=== PATIENT | male | born 1945 | race Native Hawaiian/Other Pacific Islander ===

== ENCOUNTER 2016-12-07 06:11 | Emergency (ER) | payer OTHER ==
[2016-12-07] MEDS ORDERED: Sodium Chloride 0.9% 1,000 ML IV ONE (06:35)
--- NOTE | 2016-12-07 06:38 | C.PDOC ---
History Of Present Illness A 71 y/o male c/o sudden onset vertigo that began this morning. Pt notes that the symptoms is worse with worse with movement. Pt also c/o mild slight chest pain and nausea. Pt denies vomiting, fever, chills, LOC, or any other complaints. Time Seen by Provider: 12/07/16 06:43 Chief Complaint (Nursing): Chest Pain History Per: Patient History/Exam Limitations: no limitations Onset/Duration Of Symptoms: Hrs Current Symptoms Are (Timing): Still Present Severity: Mild Associated Symptoms: Nausea Exacerbating Factors: Movement Recent travel outside of the [place]: No Additional History Per: Patient Past Medical History Reviewed: Historical Data, Nursing Documentation, Vital Signs Vital Signs: Last Vital Signs Temp 97.5 F L 12/07/16 08:00 Pulse 84 12/07/16 08:00 Resp 20 12/07/16 08:00 BP 125/65 12/07/16 08:00 Pulse Ox 97 12/07/16 12:00 - Medical History PMH: HTN Family History: States: Unknown Family Hx - Social History Hx Alcohol Use: Yes Hx Substance Use: No - Immunization History Hx Tetanus Toxoid Vaccination: No Hx Influenza Vaccination: Yes Hx Pneumococcal Vaccination: No Review Of Systems Except As Marked, All Systems Reviewed And Found Negative. Constitutional: Negative for: Fever, Chills Cardiovascular: Positive for: Chest Pain (Mild chest pain) Gastrointestinal: Positive for: Nausea. Negative for: Vomiting Neurological: Positive for: Other (Vertigo. No LOC) Physical Exam - Physical Exam Appears: Non-toxic, No Acute Distress Skin: Warm, Dry Head: Atraumatic, Normacephalic Eye(s): bilateral: Other (Bilateral nystagmus) Oral Mucosa: Moist Throat: Normal, No Exudate Neck: Supple Chest: Symmetrical, No Tenderness Cardiovascular: Rhythm Regular, No Murmur Respiratory: Normal Breath Sounds, No Accessory Muscle Use, No Rales, No Rhonchi , No Wheezing Gastrointestinal/Abdominal: Soft, No Tenderness Neurological/Psych: Oriented x3, Normal Speech, Other (No focal deficit) ED Course And Treatment - Laboratory Results Result Diagrams: 12/07/16 06:43 12/07/16 06:43 O2 Sat by Pulse Oximetry: 97 Medical Decision Making Medical Decision Making: Impression: 71 y/o male c/o sudden onset of vertigo that occurred 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 Your provider was Rowdy. You were treated for positional vertigo. The emergency medical care you received today was directed at your acute symptoms. If you were prescribed any medication , please fill it and take as directed. It may take several days for your symptoms to resolve. Return to the Emergency Department if your symptoms worsen , do not improve, or if you have any other problems. Please contact your doctor or call one of the physicians/clinics you have been referred to that are listed on the Patient Visit Information form that is included in your discharge packet. Bring any paperwork you were given at discharge with you along with any medications you are taking to your follow up visit. Our treatment cannot replace ongoing medical care by a primary care provider (PCP) outside of the emergency department. Thank you for allowing the [facility] team to be part of your care today. Follow up with your primary doctor tomorrow as scheduled. Stay hydrated throughout the day. Prescriptions: Meclizine [Meclizine*] 25 mg PO Q6 PRN #20 tab PRN Reason: Dizziness Instructions: Benign Paroxysmal Positional Vertigo (ED) Forms: Work Excuse - POA Present On Arrival: None - Clinical Impression Clinical Impression: Vertigo - Scribe Statement The provider has reviewed the documentation as recorded by the Tevinibcassi kim All medical record entries made by the Tevinibcassi were at my direction and personally dictated by me. I have reviewed the chart and agree that the record accurately reflects my personal performance of the history, physical exam, medical decision making, and the department course for this patient. I have also personally directed, reviewed, and agree with the discharge instructions and disposition. Physician Patient Turnover Patient Signed Over To: Ronak Go DO
[2016-12-07] MEDS ORDERED: Sodium Chloride 0.9% 1,000 ML ONE (06:41)
[2016-12-07 06:45] LABS: BASO # 0.1 K/uL (0.0-0.2); BASO % 1.1 % (0.0-2.0); EOS # 0.2 K/uL (0.0-0.7); EOS % 3.4 % (0.0-4.0); HEMATOCRIT 43.3 % (35.0-51.0); LYMPH # 1.3 K/uL (1.0-4.3); LYMPH % 23.5 % (20.0-40.0); MEAN CELL VOLUME 96.8 fL (80.0-94.0); MEAN CORPUSCULAR HEMOGLOBIN 33.8 pg (27.0-31.0); MEAN CORPUSCULAR HGB CONC 34.9 g/dL (33.0-37.0); MEAN PLATELET VOLUME 7.7 fL (7.2-11.7); MONO # 0.6 K/uL (0.0-0.8); MONO % 10.7 % (0.0-10.0); RED CELL DISTRIBUTION WIDTH 12.7 % (11.5-14.5); WHITE BLOOD COUNT 5.7 K/uL (4.8-10.8)
[2016-12-07 06:54] LABS: CHLORIDE 96 mmol/L (98-107)
[2016-12-07 06:55] LABS: POTASSIUM 3.8 mmol/L (3.6-5.2); SODIUM 135 mmol/L (132-148)
[2016-12-07 06:57] LABS: AST/SGOT 35 U/L (17-59); BILIRUBIN,TOTAL 1.1 mg/dL (0.2-1.3); CARBON DIOXIDE 30 mmol/L (22-30); GFR AFRICAN-AMERICAN > 60
[2016-12-07 06:58] LABS: ALB/GLOB RATIO 1.3 (1.0-2.1); ALKALINE PHOSPHATASE 53 U/L (38-126); ALT/SGPT 32 U/L (21-72); BLOOD UREA NITROGEN 20 mg/dL (9-20); CALCIUM 9.6 mg/dl (8.6-10.4); GLUCOSE,RANDOM 123 mg/dL (75-110)
[2016-12-07 07:14] VITALS: RESP 20
[2016-12-07 08:01] VITALS: BP 125/65; PULSE 84; TEMP 97.5
--- NOTE | 2016-12-07 08:29 | CT ---
PROCEDURE: CT HEAD WITHOUT CONTRAST. HISTORY: Headache COMPARISON: None available. TECHNIQUE: Axial computed tomography images were obtained through the head/brain without intravenous contrast. Radiation dose: Total exam DLP = 929.46 mGy-cm. This CT exam was performed using one or more of the following dose reduction techniques: Automated exposure control, adjustment of the mA and/or kV according to patient size, and/or use of iterative reconstruction technique. FINDINGS: HEMORRHAGE: No intracranial hemorrhage. BRAIN: There is no territorial infarction, mass, mass effect or abnormal extra-axial fluid collection. VENTRICLES: There is mild age-related global parenchymal volume loss and proportionate enlargement of the ventricles and cortical sulci. CALVARIUM: Unremarkable. PARANASAL SINUSES: Mild scattered chronic ethmoid sinusitis. The remaining included paranasal sinuses are predominantly clear. MASTOID AIR CELLS: Unremarkable as visualized. No inflammatory changes. OTHER FINDINGS: None. IMPRESSION: No acute intracranial abnormality. Mild age-related global parenchymal volume loss. A preliminary report was provided by [email or web address].
--- NOTE | 2016-12-07 09:00 | RAD ---
HISTORY: Chest pain COMPARISON: No prior. FINDINGS: LUNGS: The lungs are well inflated and clear. PLEURA: No significant pleural effusion identified, no pneumothorax apparent. CARDIOVASCULAR: Normal. OSSEOUS STRUCTURES: No significant abnormalities. VISUALIZED UPPER ABDOMEN: Normal. OTHER FINDINGS: None. IMPRESSION: No active pulmonary disease.
[2016-12-07 12:00] VITALS: O2SAT 97
--- NOTE | 2016-12-08 14:05 | CARD ---
APPROVED REPORT EKG Measurement Heart [id number] <Conclusion> Normal sinus rhythm Normal ECG
== END 2016-12-07 08:07 | disposition home or self-care (01) ==
LOC: C.ER 06:11
DX: R42 Dizziness and giddiness (principal)
CPT/HCPCS: 70450; 71010; 80053; 84484; 85025; 93005; 96374; 99285; J2060; J7040

== ENCOUNTER 2017-12-14 09:38 | Inpatient (IN) | payer MEDICARE, OTHER ==
--- NOTE | 2017-12-14 10:18 | C.PDOC ---
History Of Present Illness 72-year-old male with PMHx of HTN and Vertigo, presents to the emergency department with 2 day history of dizziness. Patient states he has been experiencing chest pain that is associated with nausea, non-bloody/non-bilious vomiting and room-spinning dizziness that started this morning. He notes chest pain has gone, and states he took Meclizine this morning with minimal relief. Denies fever, shortness of breath, back pain, numbness, weakness, vision changes , or any other associated symptoms. Time Seen by Provider: 12/14/17 10:01 Chief Complaint (Nursing): Chest Pain History Per: Patient History/Exam Limitations: no limitations Onset/Duration Of Symptoms: Days Current Symptoms Are (Timing): Still Present Past Medical History Reviewed: Historical Data, Nursing Documentation, Vital Signs Vital Signs: Last Vital Signs Temp 97.8 F 12/14/17 09:45 Pulse 78 12/14/17 12:30 Resp 18 12/14/17 12:30 BP 137/81 12/14/17 12:30 Pulse Ox 97 12/14/17 15:00 - Medical History PMH: HTN, Hypercholesterolemia Other PMH: Vertigo Family History: States: No Known Family Hx - Social History Hx Alcohol Use: Yes Hx Substance Use: No - Immunization History Hx Tetanus Toxoid Vaccination: Yes Hx Influenza Vaccination: Yes Hx Pneumococcal Vaccination: No Review Of Systems Except As Marked, All Systems Reviewed And Found Negative. Constitutional: Negative for: Fever, Chills ENT: Negative for: Ear Pain Cardiovascular: Positive for: Chest Pain. Negative for: Palpitations, Orthopnea , Edema, Light Headedness Respiratory: Negative for: Cough, Shortness of Breath Gastrointestinal: Positive for: Nausea, Vomiting. Negative for: Abdominal Pain Genitourinary: Negative for: Dysuria Musculoskeletal: Negative for: Back Pain Neurological: Positive for: Dizziness. Negative for: Weakness, Numbness, Headache Physical Exam - Physical Exam Appears: Non-toxic, No Acute Distress Skin: Normal Color, Warm, Dry, No Rash Head: Atraumatic, Normacephalic Eye(s): bilateral: Normal Inspection, PERRL, EOMI Ear(s): Bilateral: Normal Nose: Normal Oral Mucosa: Moist Lips: Normal Appearing Throat: No Erythema, No Exudate Neck: Normal ROM, Supple Chest: Symmetrical, No Tenderness Cardiovascular: Rhythm Regular, No Murmur Respiratory: Normal Breath Sounds, No Accessory Muscle Use, No Rales, No Rhonchi , No Wheezing Gastrointestinal/Abdominal: Soft, No Tenderness Back: No CVA Tenderness Extremity: Normal ROM, No Pedal Edema, No Deformity, No Swelling Neurological/Psych: Oriented x3, Normal Speech, Normal Cranial Nerves, Normal Motor, Normal Sensation, Other (normal gaze, tongue is midline, ) Gait: Unsteady ED Course And Treatment - Laboratory Results Result Diagrams: 12/14/17 10:18 12/14/17 10:18 O2 Sat by Pulse Oximetry: 97 (RA) Pulse Ox Interpretation: Normal Medical Decision Making Medical Decision Making: Plan: * CT Head * EKG * Bloodwork * Chest X-Ray * Benadryl, Reglan, IVF for dizziness * Reassess and Disposition On the first re-exam, the patient reports that the dizziness has not improved. Another antivert PO is ordered. On second re-exam, the patient reports that the dizziness has still remained the same. The patient was walked to the bathroom with assistance and fell. Patient was caught by the son and gait remains unsteady. The case was discussed with Dr. Morrell (hospitalist oncall) who agrees to place the patient on OBS to rule out posterior circulation abnormalities. Disposition - Disposition Disposition: HOSPITALIZED Disposition Time: 15:01 Condition: STABLE Forms: [facility] ([place]) - POA Present On Arrival: None - Clinical Impression Clinical Impression: Unsteady gait, Vertigo - Scribe Statement The provider has reviewed the documentation as recorded by the Scribe (Sissy Goins) All medical record entries made by the Scribe were at my direction and personally dictated by me. I have reviewed the chart and agree that the record accurately reflects my personal performance of the history, physical exam, medical decision making, and the department course for this patient. I have also personally directed, reviewed, and agree with the discharge instructions and disposition.
--- NOTE | 2017-12-14 10:35 | RAD ---
PROCEDURE: CHEST RADIOGRAPH, 1 VIEW HISTORY: chest pain COMPARISON: 12/07/2016 FINDINGS: LUNGS: The right infrahilar bronchovascular markings appear top normal and stable in appearance PLEURA: No pneumothorax or pleural fluid seen. CARDIOVASCULAR: Within normal limits OSSEOUS STRUCTURES: Bilateral shoulder arthrosis VISUALIZED UPPER ABDOMEN: Normal. OTHER FINDINGS: None. IMPRESSION: No interval pathology noted
[2017-12-14 10:38] LABS: BASO # 0.1 K/uL (0.0-0.2); EOS # 0.2 K/uL (0.0-0.7); MEAN CORPUSCULAR HEMOGLOBIN 34.4 pg (27.0-31.0)
[2017-12-14 10:44] LABS: HEMOGLOBIN 15.4 g/dL (12.0-18.0); RED CELL DISTRIBUTION WIDTH 12.8 % (11.5-14.5)
[2017-12-14 10:45] LABS: PROTHROMBIN TIME 10.7 SECONDS (9.7-12.2)
[2017-12-14] MEDS ORDERED: DiphenhydrAMINE 50 mg/ml Inj IVP STA (10:48)
[2017-12-14 10:50] LABS: EOS % 2.5 % (0.0-4.0); LYMPH # 1.7 K/uL (1.0-4.3); LYMPH % 23.3 % (20.0-40.0); MEAN CELL VOLUME 97.9 fL (80.0-94.0); MEAN CORPUSCULAR HGB CONC 35.1 g/dL (33.0-37.0); MEAN PLATELET VOLUME 8.1 fL (7.2-11.7); MONO # 0.6 K/uL (0.0-0.8); MONO % 7.9 % (0.0-10.0); NEUT # 4.7 K/uL (1.8-7.0); NEUT % 65.3 % (50.0-75.0); NRBC % 0.6 % (0.0-2.0); RBC 4.47 Mil/uL (4.40-5.90); WHITE BLOOD COUNT 7.2 K/uL (4.8-10.8)
[2017-12-14 11:00] LABS: ALB/GLOB RATIO 1.2 (1.0-2.1); ALBUMIN 4.7 g/dL (3.5-5.0); ALT/SGPT 40 U/L (21-72); AST/SGOT 51 U/L (17-59); BLOOD UREA NITROGEN 21 mg/dL (9-20); CALCIUM 9.9 mg/dl (8.6-10.4); GFR AFRICAN-AMERICAN > 60; GFR NON-AFRICAN AMERICAN 60
[2017-12-14] MEDS ORDERED: Sodium Chloride 0.9% 500 ML IV ONE ×2 (11:11→11:38)
[2017-12-14 11:12] LABS: B-TYPE NATRIURETIC PEPTIDE 28.3 pg/mL (0-900)
[2017-12-14] MEDS ORDERED: DiphenhydrAMINE 50 mg/ml Inj ONE (11:38)
--- NOTE | 2017-12-14 12:03 | CT ---
PROCEDURE: CT HEAD WITHOUT CONTRAST. HISTORY: dizziness COMPARISON: Noncontrast head CT 12/07/2016. TECHNIQUE: Axial computed tomography images were obtained through the head/brain without intravenous contrast. Radiation dose: Total exam DLP = 896.41 mGy-cm. This CT exam was performed using one or more of the following dose reduction techniques: Automated exposure control, adjustment of the mA and/or kV according to patient size, and/or use of iterative reconstruction technique. FINDINGS: HEMORRHAGE: No intracranial hemorrhage. BRAIN: The moses-white matter differentiation is well preserved. There is no mass effect or definitive edema pattern appreciated including the cortex. There is proportional expansion of the ventriculosulcal and cisternal spaces however in a pattern most compatible with diffuse cerebral atrophy. No suspicious extra-axial fluid collection is identified in the midline brain anatomy appears grossly nonfocal as imaged. VENTRICLES: Unremarkable. No hydrocephalus. CALVARIUM: Unremarkable. PARANASAL SINUSES: Unremarkable as visualized. No significant inflammatory changes. MASTOID AIR CELLS: Unremarkable as visualized. No inflammatory changes. OTHER FINDINGS: None. IMPRESSION: No definite acute intracranial findings by standard CT criteria. Mild age related neurodegenerative findings as discussed above, stable in the interval.
--- NOTE | 2017-12-14 15:15 | CP.PCM.HP ---
<JarretAmbrosio Shira - Last Filed: 12/14/17 16:59> History of Present Illness - History of Present Illness History of Present Illness: PGY-[address] Morrell. Mr Caraballo is a 72 year old male with a PMHx of HTN, GERD, ED, HLD who presents to the ER complaining of unsteady gait. He states his unsteady gait is associated with lightheadedness. He also had nausea. He denies a sensation of room spinning. He woke up this morning at 6AM and felt as if he would fall over. He went back to sleep in hopes the sensation would go away however the symptoms persisted. He took a meclazine tablet without relief. He stated he had to hold on to something just to stand up. The symptoms persisted thus he came to the ER. Of note, he takes his BP medications at 8AM every morning and he stated 2 days ago he also took a cialis around noon. He felt fine in the interim and states the symptoms only began this morning. He had a similar episode 1 year ago which prompted him to come to the ED at that time as well. He denies chest pain, blurry vision, focal deficits, slurred speech, bleeding, fatigue, weight loss, abdominal pain, vomiting. 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 absent: Chest Pain, Palpitations - Respiratory Respiratory: absent: Cough, Dyspnea - Gastrointestinal Gastrointestinal: Nausea. absent: Abdominal Pain, Diarrhea, Vomiting - Genitourinary Genitourinary: absent: Dysuria - Musculoskeletal Musculoskeletal: absent: Numbness, Tingling Additional comments: heel pain b/l - Integumentary Additional comments: numerous moles on face and abdomen - Neurological Neurological: Abnormal Gait. absent: Dizziness, Numbness, Vertigo, Other Visual Disturbances Past Patient History - Past Social History Smoking Status: Light Smoker < 10 Cigarettes Daily - CARDIAC Hx Hypercholesterolemia: Yes Hx Hypertension: Yes - NEUROLOGICAL Hx Neurological Disorder: Yes Hx Vertigo: Yes - GASTROINTESTINAL Hx Gastrointestinal Disorders: Yes Hx Gastroesophageal Reflux: Yes - PSYCHIATRIC Hx Substance Use: No - SURGICAL HISTORY Hx Surgeries: No - ANESTHESIA Hx Anesthesia: No Meds Allergies/Adverse Reactions: Allergies Allergy/AdvReac Type Severity Reaction Status Date / Time No Known Allergies Allergy Verified 12/07/16 06:28 Physical Exam - Constitutional Appears: Well, No Acute Distress - Head Exam Head Exam: ATRAUMATIC, NORMAL INSPECTION - Eye Exam Eye Exam: EOMI, Normal appearance Pupil Exam: PERRL - ENT Exam ENT Exam: Mucous Membranes Moist, Normal External Ear Exam, TM's Normal Bilaterally - Respiratory Exam Respiratory Exam: Clear to Auscultation Bilateral, NORMAL BREATHING PATTERN. absent: Rales, Rhonchi, Wheezes - Cardiovascular Exam Cardiovascular Exam: REGULAR RHYTHM, +S1, +S2. absent: Bradycardia, Tachycardia , JVD, Systolic Murmur - GI/Abdominal Exam GI & Abdominal Exam: Normal Bowel Sounds, Soft. absent: Distended, Firm, Tenderness - Extremities Exam Extremities exam: Positive for: normal capillary refill, normal inspection. Negative for: tenderness - Neurological Exam Neurological exam: Alert, CN II-XII Intact, Oriented x3 Additional comments: milka-hallpike test normal however patient became lightheaded during test - Psychiatric Exam Psychiatric exam: Normal Affect, Normal Mood - Skin Skin Exam: Intact, Normal Color, Warm Additional comments: numerous melanocytic nevus on face and abdomen Results - Vital Signs Recent Vital Signs: Last Vital Signs Temp 97.8 F 12/14/17 09:45 Pulse 86 12/14/17 15:00 Resp 18 12/14/17 15:00 BP 128/60 12/14/17 15:00 Pulse Ox 97 12/14/17 15:05 - Labs Result Diagrams: 12/14/17 10:18 12/14/17 10:18 Labs: Laboratory Results - last 24 hr 12/14/17 12/14/17 12/14/17 09:50 10:18 10:18 WBC 7.2 RBC 4.47 Hgb 15.4 Hct 43.8 MCV 97.9 H MCH 34.4 H MCHC 35.1 RDW 12.8 Plt Count 190 MPV 8.1 Neut % (Auto) 65.3 Lymph % (Auto) 23.3 [place] % (Auto) 7.9 Eos % (Auto) 2.5 Baso % (Auto) 1.0 Neut # (Auto) 4.7 Lymph # (Auto) 1.7 [place] # (Auto) 0.6 Eos # (Auto) 0.2 Baso # (Auto) 0.1 PT 10.7 INR 1.0 APTT 25 Sodium Potassium Chloride Carbon Dioxide Anion Gap BUN Creatinine Est GFR ( Amer) Est GFR (Non-Af Amer) POC Glucose (mg/dL) 171 H Random Glucose Calcium Total Bilirubin AST ALT Alkaline Phosphatase Troponin I NT-Pro-B Natriuret Pep Total Protein Albumin Globulin Albumin/Globulin Ratio 12/14/17 10:18 WBC RBC Hgb Hct MCV MCH MCHC RDW Plt Count MPV Neut % (Auto) Lymph % (Auto) [place] % (Auto) Eos % (Auto) Baso % (Auto) Neut # (Auto) Lymph # (Auto) [place] # (Auto) Eos # (Auto) Baso # (Auto) PT INR APTT Sodium 140 Potassium 3.9 Chloride 98 Carbon Dioxide 28 Anion Gap 18 BUN 21 H Creatinine 1.2 Est GFR ( Amer) > 60 Est GFR (Non-Af Amer) 60 POC Glucose (mg/dL) Random Glucose 141 H Calcium 9.9 Total Bilirubin 1.4 H AST 51 ALT 40 Alkaline Phosphatase 48 Troponin I < 0.0120 NT-Pro-B Natriuret Pep 28.3 Total Protein 8.5 H Albumin 4.7 Globulin 3.8 Albumin/Globulin Ratio 1.2 Assessment & Plan (1) Unsteady gait Assessment and Plan: Unsteady gait resulting from lightheadedness. Denies room spinning sensation. 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 currently denies tinnitus Patient took cialis wednesday afternoon a few hours after taking his BP medications - possibly contributing to his symptoms? Consult ENT, Dr Viramontes Consult Neurology, Dr Daley Implement fall precautions Labs/Diagnostics: F/U TSH/Free T4, repeat trops/ekg Check orthostatic vitals EKG: NSR F/U Echo F/U carotid duplex Imaging: CT head without contrast 12/14/17: * No definite acute intracranial findings by standard CT criteria. Mild age related neurodegenerative findings as discussed above, stable in the interval. F/U MRI brain w/o contrast F/U MRA head and neck w/o contrast Status: Acute Priority: High (2) Hypertension Assessment and Plan: BP well controlled F/U Echo Cont home med norvasc 5mg PO QD Cont home med valsartan-hctz 160-12.5 -> switched to in house meds losartan- hctz 100-12.5mg PO QD Status: Chronic Priority: High (3) Hyperlipidemia Assessment and Plan: F/U lipid panel Cont home med atorvastatin 20mg PO QD -> switched to in house med rosuvastatin 10mg PO HS Cont home med ASA 81mg PO QD Status: Chronic Priority: High (4) Prophylactic measure Assessment and Plan: GI prophylaxis not indicated PT/OT Heart healthy diet w/ 2g Na restriction SCDs Lovenox 40mg SC QD Status: Acute Priority: Low <Shayla Morrell V - Last Filed: 12/14/17 17:41> Results - Vital Signs Recent Vital Signs: Last Vital Signs Temp 97.8 F 12/14/17 09:45 Pulse 86 12/14/17 15:00 Resp 18 12/14/17 15:00 BP 128/60 12/14/17 15:00 Pulse Ox 97 12/14/17 15:05 - Labs Result Diagrams: 12/14/17 10:18 12/14/17 10:18 Labs: Laboratory Results - last 24 hr 12/14/17 12/14/17 12/14/17 09:50 10:18 10:18 WBC 7.2 RBC 4.47 Hgb 15.4 Hct 43.8 MCV 97.9 H MCH 34.4 H MCHC 35.1 RDW 12.8 Plt Count 190 MPV 8.1 Neut % (Auto) 65.3 Lymph % (Auto) 23.3 [place] % (Auto) 7.9 Eos % (Auto) 2.5 Baso % (Auto) 1.0 Neut # (Auto) 4.7 Lymph # (Auto) 1.7 [place] # (Auto) 0.6 Eos # (Auto) 0.2 Baso # (Auto) 0.1 PT 10.7 INR 1.0 APTT 25 Sodium Potassium Chloride Carbon Dioxide Anion Gap BUN Creatinine Est GFR ( Amer) Est GFR (Non-Af Amer) POC Glucose (mg/dL) 171 H Random Glucose Calcium Total Bilirubin AST ALT Alkaline Phosphatase Troponin I NT-Pro-B Natriuret Pep Total Protein Albumin Globulin Albumin/Globulin Ratio 12/14/17 10:18 WBC RBC Hgb Hct MCV MCH MCHC RDW Plt Count MPV Neut % (Auto) Lymph % (Auto) [place] % (Auto) Eos % (Auto) Baso % (Auto) Neut # (Auto) Lymph # (Auto) [place] # (Auto) Eos # (Auto) Baso # (Auto) PT INR APTT Sodium 140 Potassium 3.9 Chloride 98 Carbon Dioxide 28 Anion Gap 18 BUN 21 H Creatinine 1.2 Est GFR ( Amer) > 60 Est GFR (Non-Af Amer) 60 POC Glucose (mg/dL) Random Glucose 141 H Calcium 9.9 Total Bilirubin 1.4 H AST 51 ALT 40 Alkaline Phosphatase 48 Troponin I < 0.0120 NT-Pro-B Natriuret Pep 28.3 Total Protein 8.5 H Albumin 4.7 Globulin 3.8 Albumin/Globulin Ratio 1.2 Attending/Attestation - Attestation I have personally seen and examined this patient.: Yes I have fully participated in the care of the patient.: Yes I have reviewed all pertinent clinical information: Yes Notes (Text): Patient seen, examined and case discussed with medical laboratory assistant. Patient who is 72 year old Male comes in after 2 days of persistent lightheadedness which did not improve inspite of antivert which he takes at home. Patient denies vertigo, denies head spinning, reports normally his balance is good and does not require any assistive device. 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 Patient reports he came in to the ED but inspite of medications his symptoms did not improve. Patient given Benadryl, Reglan, Antivert, and NS Fluid bolus. Patient reports he feels lightheadness as soon as he lies flat and needs to elevate himself, he reports it is also illicted when he turns his head quickly, he denies associated nausea, denies associated vomitting, denies tinnitus. When I discussed patient with ED nurse practitioner, when patient attempts to get out of bed he cannot steady himself which is a change for him. Patient on cranial nerve exam is grossly intact, negative babinski b/l strength upper and lower 5/5 strength. Patient denies vision complaints. We have check ears TMI intact b/l and mild cerum buildup in the left ear. Patient when we lowered his bed to flat did duplicate his lightheadedness. Patient has completed Head CT which is negative. In light of risk factors for stroke, elevated cholestrol and hypertension, will order for MRI brain and MRA head and neck r/o cerebellar stroke and vestibular insuffiency. Also to note, patient has history of hypertension, reports he takes his anti- hypertensives at 7am in the morning and he takes his Cialias at noon, when Alma asked him why does he take his second medication quite early he reports he has a girlfriend. I have explained to him given the timing of his medications it is recommended to take his Cilasis in the evening to prevent hypotension given he is on anti-hypertensives which can further exacerbate his symptoms. We will ask neurology and ENT consult in further assistance in regards to the patient. Assessment/Plan (1) Unsteady gait Lightheadness Assessment and Plan: * Consult ENT, Dr Viramontes-->help appreciated * Consult Neurology, Dr Daley-->-->help appreciated * Fall precautions * Risk factors and pertinent history: * Unsteady gait resulting from lightheadedness. Denies room spinning sensation. 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 currently denies tinnitus'Patient took cialis wednesday afternoon a few hours after taking his BP medications - possibly contributing to his symptoms? Labs/Diagnostics: F/U TSH/Free T4, repeat trops/ekg Check orthostatic vitals EKG: NSR F/U Echo F/U carotid duplex Imaging: CT head without contrast 12/14/17: * No definite acute intracranial findings by standard CT criteria. Mild age related neurodegenerative findings as discussed above, stable in the interval. F/U MRI brain w/o contrast F/U MRA head and neck w/o contrast Status: Acute Priority: High (2) Hypertension Assessment and Plan: * BP well controlled * F/U Echo reason: above age 50 and hx of htn * Cont home med norvasc 5mg PO QDaily * Cont home med valsartan-hctz 160-12.5 -> switched to in house meds losartan- hctz 100-12.5mg PO QD due to pharmacy formulary Status: Chronic Priority: High (3) Hyperlipidemia Assessment and Plan: * F/U lipid panel * Cont home med atorvastatin 20mg PO QD -> switched to in house med rosuvastatin 10mg PO HS * Cont home med ASA 81mg PO QD Status: Chronic Priority: High (4) Prophylactic measure Assessment and Plan: * GI prophylaxis not indicated * PT/OT * Heart healthy diet w/ 2g Na restriction * SCDs * Lovenox 40mg SC QD * Fall precautions Status: Acute Priority: Low
[2017-12-14 18:01] LABS: CK-MB 1.18 ng/mL (0.0-3.38)
[2017-12-14 18:28] VITALS: RESP 20
[2017-12-15 06:19] LABS: BASO % 0.6 % (0.0-2.0); EOS # 0.2 K/uL (0.0-0.7); EOS % 2.5 % (0.0-4.0); HEMOGLOBIN 14.3 g/dL (12.0-18.0); LYMPH # 1.4 K/uL (1.0-4.3); LYMPH % 20.2 % (20.0-40.0); MEAN CORPUSCULAR HGB CONC 34.7 g/dL (33.0-37.0); MEAN PLATELET VOLUME 7.3 fL (7.2-11.7); MONO # 0.7 K/uL (0.0-0.8); MONO % 9.7 % (0.0-10.0); NEUT # 4.7 K/uL (1.8-7.0); RBC 4.21 Mil/uL (4.40-5.90); RED CELL DISTRIBUTION WIDTH 13.1 % (11.5-14.5)
[2017-12-15 06:33] LABS: ALB/GLOB RATIO 1.2 (1.0-2.1); ALT/SGPT 40 U/L (21-72); AST/SGOT 44 U/L (17-59); BLOOD UREA NITROGEN 19 mg/dL (9-20); CALCIUM 9.4 mg/dl (8.6-10.4); GFR AFRICAN-AMERICAN > 60; GFR NON-AFRICAN AMERICAN > 60; HDL CHOLESTEROL 39 mg/dL (30-70)
[2017-12-15 06:43] LABS: LDL CHOLESTEROL 74 mg/dL (0-129)
[2017-12-15 06:48] LABS: T4 9.05 ug/dL (5.5-11.0)
[2017-12-15] MEDS ORDERED: Potassium Chloride 20 mEq ER Tab PO ONE (08:30)
[2017-12-15] MEDS: Enoxaparin 40 mg Syringe SC SCH (09:06)
--- NOTE | 2017-12-15 11:25 | CP.PCM.PN ---
<Gale Chris E - Last Filed: 12/15/17 17:52> Subjective - Date & Time of Evaluation Date of Evaluation: 12/15/17 Time of Evaluation: 07:15 - Subjective Subjective: Medicine Note ( Dr. Morrell's service) Patient was seen and examined at bedside. Patient reports that he is doing well but still admits to lightheadedness with ambulation. Patient denies headache, visual changes, chest pain, SOB, nausea, vomiting, dizziness, bilateral lower extremities numbness/tingling. During the encounter, patient was asked to ambulate and he was able to ambulate by holding on to the lake for assistance. Objective - Vital Signs/Intake and Output Vital Signs (last 24 hours): Temp Pulse Resp BP Pulse Ox 97.9 F 73 20 138/74 97 12/15/17 07:15 12/15/17 07:40 12/15/17 07:15 12/15/17 07:15 12/15/17 07:15 - Medications Medications: Current Medications Acetaminophen (Tylenol 325mg Tab) 650 mg PO Q6 PRN PRN Reason: Headache Amlodipine Besylate (Norvasc) 5 mg PO DAILY [facility] Last Admin: 12/15/17 09:06 Dose: 5 mg Aspirin (Aspirin Chewable) 81 mg PO DAILY [facility] Last Admin: 12/15/17 09:06 Dose: 81 mg Enoxaparin Sodium (Lovenox) 40 mg SC DAILY [facility] Last Admin: 12/15/17 09:06 Dose: 40 mg Hydrochlorothiazide (Microzide) 12.5 mg PO DAILY [facility] Last Admin: 12/15/17 09:06 Dose: 12.5 mg Losartan Potassium (Cozaar) 100 mg PO DAILY [facility] Last Admin: 12/15/17 09:06 Dose: 100 mg Rosuvastatin Calcium (Crestor) 10 mg PO HS [facility] Last Admin: 12/14/17 21:16 Dose: 10 mg - Labs Labs: 12/15/17 06:13 12/15/17 06:13 PT 10.7 SECONDS (9.7-12.2) 12/14/17 10:18 INR 1.0 12/14/17 10:18 APTT 25 SECONDS (21-34) 12/14/17 10:18 - Constitutional Appears: Well, No Acute Distress - Head Exam Head Exam: ATRAUMATIC - Eye Exam Eye Exam: EOMI, Normal appearance - ENT Exam ENT Exam: Mucous Membranes Moist - Respiratory Exam Respiratory Exam: NORMAL BREATHING PATTERN. absent: Accessory Muscle Use, Rhonchi, Wheezes, Respiratory Distress - Cardiovascular Exam Cardiovascular Exam: REGULAR RHYTHM, +S1, +S2. absent: Murmur - GI/Abdominal Exam GI & Abdominal Exam: Soft, Normal Bowel Sounds. absent: Distended, Firm, Guarding, Rigid, Tenderness - Extremities Exam Extremities Exam: Normal Inspection - Neurological Exam Neurological Exam: Alert, Awake, Oriented x3. absent: Normal Gait - Psychiatric Exam Psychiatric exam: Normal Affect - Skin Skin Exam: Normal Color Assessment and Plan (1) Unsteady gait Assessment & Plan: Consults: ENT, Dr Viramontes--> help appreciated Neurology, Dr Daley---> Help appreciated * Management as per recommendation Labs: Troponin negative x3 TSH: 7.86, Thyroxine: 9.06, f/u Free T4 Lipid panel: TGL: 160, Chol: 140, LDL:74 and HDL: 39 Imaging: CT head without contrast 12/14/17: * No definite acute intracranial findings by standard CT criteria. Mild age related neurodegenerative findings as discussed above, stable in the interval. Carotid doppler: Duplex scan does not suggest hemodynamically significant stenosis bilateral MRI brain w/o contrast: No mass-effect or cytotoxic edema throughout the brain. [id number] age-related neuro degenerative findings are appreciate throughout the cerebrum Head MRA: Unremarkable Neck MRA: Unremarkable Status: Acute (2) Hypertension Assessment & Plan: Controlled Continue home med norvasc 5mg PO QD Continue home med valsartan-hctz 160-12.5 -> switched to in house meds losartan -hctz 100-12.5mg PO QD Status: Chronic (3) Hyperlipidemia Assessment & Plan: Lipid panel: TGL: 160, Chol: 140, LDL:74 and HDL: 39 Medication: * Crestor 10mg PO HS * ASA 81mg PO QD Status: Chronic (4) Prophylactic measure Assessment & Plan: * GI prophylaxis not indicated * DVT: Lovenox 40mg SC QD and SCDs * PT/OT * Heart healthy diet w/ 2g Na restrictio * Fall precautions All management discuss with Dr. Morrell Status: Acute <Shayla Morrell V - Last Filed: 12/15/17 21:24> Objective - Vital Signs/Intake and Output Vital Signs (last 24 hours): Temp Pulse Resp BP Pulse Ox 97.8 F 80 20 143/75 95 12/15/17 16:00 12/15/17 16:11 12/15/17 16:00 12/15/17 16:00 12/15/17 16:00 - Medications Medications: Current Medications Acetaminophen (Tylenol 325mg Tab) 650 mg PO Q6 PRN PRN Reason: Headache Amlodipine Besylate (Norvasc) 5 mg PO DAILY [facility] Last Admin: 12/15/17 09:06 Dose: 5 mg Aspirin (Aspirin Chewable) 81 mg PO DAILY [facility] Last Admin: 12/15/17 09:06 Dose: 81 mg Enoxaparin Sodium (Lovenox) 40 mg SC DAILY [facility] Last Admin: 12/15/17 09:06 Dose: 40 mg Hydrochlorothiazide (Microzide) 12.5 mg PO DAILY [facility] Last Admin: 12/15/17 09:06 Dose: 12.5 mg Losartan Potassium (Cozaar) 100 mg PO DAILY [facility] Last Admin: 12/15/17 09:06 Dose: 100 mg Rosuvastatin Calcium (Crestor) 10 mg PO HS [facility] Last Admin: 12/14/17 21:16 Dose: 10 mg - Labs Labs: 12/15/17 06:13 12/15/17 06:13 PT 10.7 SECONDS (9.7-12.2) 12/14/17 10:18 INR 1.0 12/14/17 10:18 APTT 25 SECONDS (21-34) 12/14/17 10:18 Attending/Attestation - Attestation I have personally seen and examined this patient.: Yes I have fully participated in the care of the patient.: Yes I have reviewed all pertinent clinical information, including history, physical exam and plan: Yes Notes (Text): Patient seen, examined and case discussed with day-time resident. Patient seen this morning with his son at bedside. Patient gives me permission to share his medical information with his son who is at bedside. Patient reports lightheadedness and reports he is going to the bathroom though he is advised not to given his symptoms. We also had quite a conversation about alcohol use, which admits he does daily, because he cannot sleep. I have told him that misusing alcohol to self-medicate to sleep is inappropriate and he should refrain from doing so. That alcohol use overtime will take an adverse toll on the brain with his balance, problems with his immune system, problems with clotting, and even a cancer risk. He also admits to smoking which I have explained in detail in regards to adverse effects including cancer risk, premature aging etc. Patient has completed imaging including MRI/MRA studies and echocardiogram. Awaiting official neurology and ENT recommendations. Patient was advised to ask for help and to work with physical therapy. Assessment/Plan (1) Unsteady gait Lightheadedness Assessment & Plan: Consults: ENT, Dr Viramontes--> help appreciated Neurology, Dr Daley---> Help appreciated * Management as per recommendation Labs: Troponin negative x3 TSH: 7.86, Thyroxine: 9.06, f/u Free T4 Lipid panel: TGL: 160, Chol: 140, LDL:74 and HDL: 39 Imaging: CT head without contrast 12/14/17: * No definite acute intracranial findings by standard CT criteria. Mild age related neurodegenerative findings as discussed above, stable in the interval. Carotid doppler: Duplex scan does not suggest hemodynamically significant stenosis bilateral MRI brain w/o contrast: No mass-effect or cytotoxic edema throughout the brain. [id number] age-related neuro degenerative findings are appreciate throughout the cerebrum Head MRA: Unremarkable Neck MRA: Unremarkable Status: Acute (2) Hypertension Assessment & Plan: Controlled Continue home med norvasc 5mg PO QD Continue home med valsartan-hctz 160-12.5 -> switched to in house meds losartan -hctz 100-12.5mg PO QD Status: Chronic (3) Hyperlipidemia Assessment & Plan: Lipid panel: TGL: 160, Chol: 140, LDL:74 and HDL: 39 Medication: * Crestor 10mg PO HS * ASA 81mg PO QD Status: Chronic (4) Prophylactic measure Assessment & Plan: * GI prophylaxis not indicated * DVT: Lovenox 40mg SC QD and SCDs * PT/OT * Heart healthy diet w/ 2g Na restriction * Fall precautions
[2017-12-15 12:15] LABS: CK-MB 0.89 ng/mL (0.0-3.38)
--- NOTE | 2017-12-15 14:14 | MRI ---
PROCEDURE: MRI BRAIN WITHOUT CONTRAST HISTORY: unsteady gait, lightheadedness COMPARISON: None. TECHNIQUE: Multiplanar, multisequence MR images of the brain were obtained without intravenous contrast enhancement. FINDINGS: HEMORRHAGE: None DWI: No evidence of an acute or early subacute infarction. BRAIN PARENCHYMA: Good corticomedullary differentiation is seen. Proportional, diffuse expansion of the ventriculosulcal and cisternal spaces is appreciated with white matter lucency compatible with diffuse cerebral atrophy and chronic microangiopathy. An empty sella is noted as well. No suspicious extra-axial fluid collection is identified and the midline brain anatomy appears grossly nonfocal as imaged. There is no mass effect throughout. VENTRICLES: Unremarkable. No hydrocephalus. CRANIUM: Unremarkable. ORBITS: Grossly unremarkable. PARANASAL SINUSES/MASTOIDS: Multifocal anterior bilateral ethmoid sinus disease identified as well as mucosal inflammatory changes in the right greater left maxillary sinuses. VASCULAR SYSTEM: Skull base flow voids intact. OTHER FINDINGS: None. IMPRESSION: No mass-effect or cytotoxic edema throughout the brain. [id number] age-related neuro degenerative findings are appreciated throughout the cerebrum.
--- NOTE | 2017-12-15 14:17 | MRI ---
PROCEDURE: MRA neck dated 12/15/2017. HISTORY: unsteady gait, lightheadedness COMPARISON: None available. TECHNIQUE: 3D [id number] angiography of the neck was performed. Rotating maximum intensity projection images of the cervical carotid and vertebral arteries were generated. The origins of the common carotid arteries were not visualized, which is a limitation inherent to the non-contrast time of flight technique. FINDINGS: RIGHT CAROTID ARTERIES: Common Carotid Artery: Normal. Carotid Bifurcation: Normal. Internal Carotid Artery:Normal. External Carotid Artery (proximal branches): Normal. LEFT CAROTID ARTERIES: Common Carotid Artery: Normal. Carotid Bifurcation: Normal. Internal Carotid Artery:Normal. External Carotid Artery (proximal branches): Normal. VERTEBRAL ARTERIES: Minor asymmetry of the vertebral arteries left-sided which is slightly larger in caliber than the right. OTHER FINDINGS: None. IMPRESSION: Normal MR Angiography of the neck.
--- NOTE | 2017-12-15 14:40 | MRI ---
PROCEDURE: MRA brain dated 12/15/2017. HISTORY: Unsteady gait, lightheadedness COMPARISON: Correlation made with concurrent MRI brain and MRA neck. . TECHNIQUE: 3D time of flight MR angiography of the intracranial arteries was performed. Rotating maximum intensity projection images were generated. FINDINGS: INTERNAL CAROTID ARTERIES: Unremarkable. The skull base, petrous, cavernous and supraclinoid segments are bilaterally widely patient. ANTERIOR CEREBRAL ARTERIES: Unremarkable. A1 and A2 segments are widely patent. Smaller distal branches unremarkable, as visualized. MIDDLE CEREBRAL ARTERIES: Unremarkable. M1 and M2 segments are widely patent. Perisylvian branches grossly symmetric. POSTERIOR CIRCULATION: Basilar Artery: Patent of without evidence of significant stenosis the salomon adjust. Distal Vertebral Arteries: There is mild asymmetry of the distal vertebral arteries, left-sided which is slightly larger in caliber than the right side. Basilar artery patent. Posterior Cerebral Arteries: Unremarkable. Posterior Inferior Cerebellar Arteries: Unremarkable. ANEURYSM/ VASCULAR MALFORMATIONS: No evidence of large aneurysm nor vascular malformation. OTHER FINDINGS: None. IMPRESSION: Unremarkable MR angiography of the brain.
--- NOTE | 2017-12-15 14:44 | VASCLAB ---
PROCEDURE: HISTORY: Unsteady gait COMPARISON: None available. TECHNIQUE: Grayscale and duplex Doppler evaluation of the cervical carotid and vertebral arteries were performed. The common carotid, carotid bifurcations and cervical Internal Carotid Artery (ICA) and proximal External Carotid Artery (ECA) were evaluated. The vertebral arteries were evaluated for gross patency and flow direction. Report prepared by fibre technologist. FINDINGS: RIGHT CAROTID ARTERIES: 1. Common Carotid Artery: No significant focal plaque formation of the right common carotid artery. Maximum Peak Systolic velocity: 95 cm/sec: End-diastolic velocity 6 cm/sec. 2. Carotid Bifurcation: Calcific plaque formation. Maximum Peak Systolic velocity: 43 cm/sec: End-diastolic velocity 8 cm/sec. 3. Internal Carotid Artery: Plaque description: Calcific 3.1. Proximal Segment: Peak systolic velocity 62 cm/sec: End-diastolic velocity 23 cm/sec - % stenosis 0-15% 3.2. Middle Segment: Peak systolic velocity 78 cm/sec: End-diastolic velocity 27 cm/sec - % stenosis 0-15% 3.3. Distal Segment: Peak systolic velocity 117 cm/sec: End-diastolic velocity 37 cm/sec - % stenosis 0-15% 4. External Carotid Artery: No significant focal plaque formation. Peak systolic velocity 75 cm/sec 5. ICA/CCA Ratio: 2.7 LEFT CAROTID ARTERIES: 1. Common Carotid Artery: No significant focal plaque formation of the left common carotid artery. Maximum Peak Systolic velocity: 67 cm/sec: End-diastolic velocity 12 cm/sec. 2. Carotid Bifurcation: Calcific plaque formation. Maximum Peak Systolic velocity: 42 cm/sec: End-diastolic velocity 11 cm/sec. 3. Internal Carotid Artery: Plaque description: Calcific 3.1. Proximal Segment: Peak systolic velocity 82 cm/sec: End-diastolic velocity 25 cm/sec - % stenosis 0-15% 3.2. Middle Segment: Peak systolic velocity 53 cm/sec: End-diastolic velocity 14 cm/sec - % stenosis 0-15% 3.3. Distal Segment: Peak systolic velocity 58 cm/sec: End-diastolic velocity 22 cm/sec - % stenosis 0-15% 4. External Carotid Artery: No significant focal plaque formation. Peak systolic velocity 62 cm/sec 5. ICA/CCA Ratio: 1.5 VERTEBRAL ARTERIES: 1. Right Vertebral Artery: The right vertebral artery flow direction is antegrade. 2. Left Vertebral Artery: The left vertebral artery flow direction is antegrade. OTHER FINDINGS: IMPRESSION: RIGHT: Duplex scan does not suggest hemodynamically significant stenosis of the right extracranial carotid arteries. LEFT: Duplex scan does not suggest hemodynamically significant stenosis of the left extracranial carotid arteries.
--- NOTE | 2017-12-15 21:49 | CP.PCM.CON ---
History of Present Illness - History of Present Illness History of Present Illness: 72 yr old male who presents with 2 day history of dizziness and vertigo.....PMHx of HTN, GERD, ED, HLD who presents to the ER complaining of unsteady gait. He states his unsteady gait is associated with lightheadedness. He also had nausea. He denies a sensation of room spinning. He woke up this morning at 6AM and felt as if he would fall over. He went back to sleep in hopes the sensation would go away however the symptoms persisted. He took a meclazine tablet without relief. He stated he had to hold on to something just to stand up. The symptoms persisted thus he came to the ER. Of note, he takes his BP medications at 8AM every morning and he stated 2 days ago he also took a cialis around noon. He felt fine in the interim and states the symptoms only began this morning. He had a similar episode 1 year ago which prompted him to come to the ED at that time as well. He denies chest pain, blurry vision, focal deficits, slurred speech, bleeding, fatigue, weight loss, abdominal pain, vomiting. PMHx: HTN, GERD, ED, HLD PSHx: Cataracts surgery b/l 2014 Home Medications: Norvasc 5mg PO QD, Valsartan-hctz 160-12.5mg QD, omeprzole 20mg PO QD, meclizine 25mg PO PRN, Cialis 5mg PO PRN, atorvastatin 20mg PO QD, asa 81mg PO QD Allergies: Denies FamHx: Denies SocialHx: 5 cigs per day for past 30 years, 3 alcoholic drinks (vodka or bourbon ) daily, denies illicit drug use, lives at home on exam: aaox3. PERRL. EOMI. no nystagmus no hearing loss. speech fluent. motor strength normal. sensory exam normal. when he pulls to stand, he is not able to take a step but has a magnetic gait. There is severe ataxia. sensory exam shows severely decreased position sense +2 dtr ul and ll bl. toes downgoing. no clonus. Past Patient History - Past Social History Smoking Status: Light Smoker < 10 Cigarettes Daily - CARDIAC Hx Hypercholesterolemia: Yes Hx Hypertension: Yes - NEUROLOGICAL Hx Neurological Disorder: Yes Hx Vertigo: Yes - GASTROINTESTINAL Hx Gastrointestinal Disorders: Yes Hx Gastroesophageal Reflux: Yes - PSYCHIATRIC Hx Substance Use: No - SURGICAL HISTORY Hx Surgeries: No - ANESTHESIA Hx Anesthesia: No Meds Allergies/Adverse Reactions: Allergies Allergy/AdvReac Type Severity Reaction Status Date / Time No Known Allergies Allergy Verified 12/07/16 06:28 - Medications Medications: Current Medications Acetaminophen (Tylenol 325mg Tab) 650 mg PO Q6 PRN PRN Reason: Headache Amlodipine Besylate (Norvasc) 5 mg PO DAILY [facility] Last Admin: 12/15/17 09:06 Dose: 5 mg Aspirin (Aspirin Chewable) 81 mg PO DAILY [facility] Last Admin: 12/15/17 09:06 Dose: 81 mg Enoxaparin Sodium (Lovenox) 40 mg SC DAILY [facility] Last Admin: 12/15/17 09:06 Dose: 40 mg Hydrochlorothiazide (Microzide) 12.5 mg PO DAILY [facility] Last Admin: 12/15/17 09:06 Dose: 12.5 mg Losartan Potassium (Cozaar) 100 mg PO DAILY [facility] Last Admin: 12/15/17 09:06 Dose: 100 mg Rosuvastatin Calcium (Crestor) 10 mg PO HS [facility] Last Admin: 12/15/17 21:23 Dose: 10 mg Results - Vital Signs Recent Vital Signs: Last Vital Signs Temp 97.8 F 12/15/17 16:00 Pulse 80 12/15/17 16:11 Resp 20 12/15/17 16:00 BP 143/75 12/15/17 16:00 Pulse Ox 95 12/15/17 16:00 - Labs Result Diagrams: 12/15/17 06:13 12/15/17 06:13 Labs: Laboratory Results - last 24 hr 12/15/17 12/15/17 12/15/17 06:13 06:13 11:09 WBC 7.0 RBC 4.21 L Hgb 14.3 Hct 41.3 MCV 98.0 H MCH 34.0 H MCHC 34.7 RDW 13.1 Plt Count 154 MPV 7.3 Neut % (Auto) 67.0 Lymph % (Auto) 20.2 Webb % (Auto) 9.7 Eos % (Auto) 2.5 Baso % (Auto) 0.6 Neut # (Auto) 4.7 Lymph # (Auto) 1.4 Webb # (Auto) 0.7 Eos # (Auto) 0.2 Baso # (Auto) 0.0 Sodium 141 Potassium 3.4 L Chloride 101 Carbon Dioxide 28 Anion Gap 15 BUN 19 Creatinine 1.1 Est GFR ( Amer) > 60 Est GFR (Non-Af Amer) > 60 Random Glucose 104 Calcium 9.4 Total Bilirubin 1.1 AST 44 ALT 40 Alkaline Phosphatase 46 Total Creatine Kinase CK-MB (Mass) Troponin I Total Protein 7.2 Albumin 4.0 Globulin 3.2 Albumin/Globulin Ratio 1.2 Triglycerides 160 H Cholesterol 140 LDL Cholesterol Direct 74 HDL Cholesterol 39 Free T4 1.17 Thyroxine (T4) 9.05 TSH 3rd Generation 7.86 H 12/15/17 11:09 WBC RBC Hgb Hct MCV MCH MCHC RDW Plt Count MPV Neut % (Auto) Lymph % (Auto) Webb % (Auto) Eos % (Auto) Baso % (Auto) Neut # (Auto) Lymph # (Auto) Webb # (Auto) Eos # (Auto) Baso # (Auto) Sodium Potassium Chloride Carbon Dioxide Anion Gap BUN Creatinine Est GFR ( Amer) Est GFR (Non-Af Amer) Random Glucose Calcium Total Bilirubin AST ALT Alkaline Phosphatase Total Creatine Kinase 145 CK-MB (Mass) 0.89 Troponin I < 0.0120 Total Protein Albumin Globulin Albumin/Globulin Ratio Triglycerides Cholesterol LDL Cholesterol Direct HDL Cholesterol Free T4 Thyroxine (T4) TSH 3rd Generation Assessment & Plan - Assessment and Plan (Free Text) Assessment: 72 yr old male whose neuro exam only shows positional vertigo but otherwise normal neurological exam. 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 MRI MRA and carotid dopplers are normal, plan: 1. b12, tsh, folate 2. emg ncv outpatient 3. gait training with physical therapy. Dr. ott
--- NOTE | 2017-12-15 23:10 | CARD ---
APPROVED REPORT EKG Measurement Heart [id number] <Conclusion> Normal sinus rhythm Normal ECG
--- NOTE | 2017-12-15 23:10 | CARD ---
APPROVED REPORT EKG Measurement Heart [id number] CT [id number] <Conclusion> Normal sinus rhythm Normal ECG
[2017-12-16 07:43] LABS: BASO % 0.8 % (0.0-2.0); EOS # 0.1 K/uL (0.0-0.7); EOS % 2.5 % (0.0-4.0); HEMOGLOBIN 14.6 g/dL (12.0-18.0); LYMPH % 18.5 % (20.0-40.0); MEAN CELL VOLUME 99.1 fL (80.0-94.0); MEAN CORPUSCULAR HEMOGLOBIN 34.9 pg (27.0-31.0); MEAN CORPUSCULAR HGB CONC 35.2 g/dL (33.0-37.0); MEAN PLATELET VOLUME 7.9 fL (7.2-11.7); MONO # 0.5 K/uL (0.0-0.8); MONO % 8.8 % (0.0-10.0); NEUT # 3.7 K/uL (1.8-7.0); NEUT % 69.4 % (50.0-75.0); NRBC % 0.1 % (0.0-2.0); RBC 4.17 Mil/uL (4.40-5.90); RED CELL DISTRIBUTION WIDTH 12.8 % (11.5-14.5); WHITE BLOOD COUNT 5.4 K/uL (4.8-10.8)
[2017-12-16 07:47] LABS: ALB/GLOB RATIO 1.2 (1.0-2.1); ALBUMIN 4.2 g/dL (3.5-5.0); ALT/SGPT 35 U/L (21-72); AST/SGOT 41 U/L (17-59); BLOOD UREA NITROGEN 14 mg/dL (9-20); CALCIUM 9.4 mg/dl (8.6-10.4); GFR AFRICAN-AMERICAN > 60; GFR NON-AFRICAN AMERICAN > 60
--- NOTE | 2017-12-16 08:04 | CP.PCM.PN ---
Subjective - Date & Time of Evaluation Date of Evaluation: 12/16/17 Time of Evaluation: 07:59 - Subjective Subjective: Mr. Caraballo was seen and examined at the bedside. He is alert, oriented, claims of inability to sleep last night. According to staff, the patient slept and snoring. He denies any headache, nausea, or vomiting, but claims of dizziness when ambulating. He is able to follow simple commands. There is no nystagmus noted. There was no untoward events overnight. Objective - Vital Signs/Intake and Output Vital Signs (last 24 hours): Temp Pulse Resp BP Pulse Ox 98.0 F 74 20 127/77 98 12/16/17 00:29 12/16/17 01:00 12/16/17 00:29 12/16/17 00:29 12/16/17 00:29 - Medications Medications: Current Medications Acetaminophen (Tylenol 325mg Tab) 650 mg PO Q6 PRN PRN Reason: Headache Amlodipine Besylate (Norvasc) 5 mg PO DAILY [facility] Last Admin: 12/15/17 09:06 Dose: 5 mg Aspirin (Aspirin Chewable) 81 mg PO DAILY [facility] Last Admin: 12/15/17 09:06 Dose: 81 mg Diazepam (Valium) 2 mg PO Q12 PRN PRN Reason: Dizziness Enoxaparin Sodium (Lovenox) 40 mg SC DAILY [facility] Last Admin: 12/15/17 09:06 Dose: 40 mg Hydrochlorothiazide (Microzide) 12.5 mg PO DAILY [facility] Last Admin: 12/15/17 09:06 Dose: 12.5 mg Sodium Chloride (Sodium Chloride 0.9%) 1,000 mls @ 100 mls/hr IV .Q10H [facility] Stop: 12/16/17 18:01 Losartan Potassium (Cozaar) 100 mg PO DAILY [facility] Last Admin: 12/15/17 09:06 Dose: 100 mg Meclizine HCl (Antivert) 25 mg PO BID [facility] Rosuvastatin Calcium (Crestor) 10 mg PO HS [facility] Last Admin: 12/15/17 21:23 Dose: 10 mg - Labs Labs: 12/16/17 07:19 12/16/17 07:19 PT 10.7 SECONDS (9.7-12.2) 12/14/17 10:18 INR 1.0 12/14/17 10:18 APTT 25 SECONDS (21-34) 12/14/17 10:18 - Constitutional Appears: Well, No Acute Distress - Head Exam Head Exam: ATRAUMATIC, NORMAL INSPECTION, NORMOCEPHALIC - Eye Exam Pupil Exam: PERRL - Neurological Exam Neurological Exam: Alert, Awake, Oriented x3 Neuro motor strength exam: Left Upper Extremity: 5, Right Upper Extremity: 5, Left Lower Extremity: 5, Right Lower Extremity: 5 Additional comments: alert, oriented in all spheres,able to follow simple commands. Assessment and Plan (1) Vertigo Assessment & Plan: Case discussed with Dr. Daley, continue all current medical and physical regimen. Recommend 0.9 Normal saline at 100 ml/hr x10 hours only, vestibular rehab, meclizine 25 mg PO BID, EMG/ NCS as an outpatient with Dr. Chung. Status: Acute
[2017-12-16] MEDS: Sodium Chloride 0.9% 1,000 ML IV SCH ×2 (08:06→17:47)
[2017-12-16] MEDS: Enoxaparin 40 mg Syringe SC SCH (09:00)
--- NOTE | 2017-12-16 11:05 | CARD ---
APPROVED REPORT EXAM: Two-dimensional and M-mode echocardiogram with Doppler and color Doppler. INDICATION Dizziness and Vertigo 2D DIMENSIONS IVSd1.3 (0.7-1.1cm)LVDd4.1 (3.9-5.9cm) PWd1.0 (0.7-1.1cm)LVDs2.4 (2.5-4.0cm) FS (%) 41.7 %LVEF (%)73.1 (>50%) M-Mode DIMENSIONS Left Atrium (MM)3.23 (2.5-4.0cm)IVSd1.31 (0.7-1.1cm) Aortic Root3.96 (2.2-3.7cm)LVDd4.03 (4.0-5.6cm) Aortic Cusp Exc.2.39 (1.5-2.0cm)PWd0.97 (0.7-1.1cm) FS (%) 38 %LVDs2.48 (2.0-3.8cm) LVEF (%)69 (>50%) Aortic Valve AI P 1/2 [id number] Mitral Valve MV E Daplgbuh71.2cm/sMV A Robkkozo14.3cm/sE/A ratio0.7 TDI E/Lateral E'0.0E/Medial E'0.0 Tricuspid Valve TR Peak [id number]/sTR Peak Gr.[id number] LEFT VENTRICLE There is borderline to mild asymmetric left ventricular hypertrophy. Left ventricle systolic functionsystolic function is normal. The Ejection Fraction is 65-70%. There is normal LV segmental wall motion. The left ventricular diastolic function is abnormal- Grade I abnormal relaxation pattern. No left ventricle thrombus noted on this study. RIGHT VENTRICLE The right ventricle is normal size. The right ventricular systolic function is normal. ATRIA The left atrium is borderline dilated. The right atrium size is normal. AORTIC VALVE The aortic valve is mildly to moderately The aortic valve is trileaflet. There is trace aortic regurgitation. There is no aortic valvular stenosis. MITRAL VALVE Mitral annular calcification is mild. The mitral valve leaflets are calcified. There is no evidence of mitral valve prolapse. There is no mitral valve stenosis. Mitral regurgitation is trace to mild. TRICUSPID VALVE The tricuspid valve is normal in structure. There is trace tricuspid regurgitation. Right ventricular systolic pressure is estimated at less than 30 mmHg. There is no pulmonary hypertension. There is no tricuspid valve prolapse or vegetation. There is no tricuspid valve stenosis. PULMONIC VALVE The pulmonary valve is normal in structure. There is mild pulmonic valvular regurgitation. There is no pulmonic valvular stenosis. GREAT VESSELS There is mild aortic root dilatation. The IVC is not visualized well and could not be assessed. PERICARDIAL EFFUSION There is no pericardial effusion. There is no pleural effusion. <Conclusion> The left ventricle is normal size. There is borderline to mild asymmetric left ventricular hypertrophy. Left ventricle systolic function is normal. The Ejection Fraction is 65-70%. The left ventricular diastolic function is abnormal- Grade I abnormal relaxation pattern. The right ventricle is normal size. The right ventricular systolic function is normal. The left atrium is borderline dilated. The right atrium size is normal. There is trace aortic regurgitation. Mitral regurgitation is trace to mild. There is trace tricuspid regurgitation. There is mild pulmonic valvular regurgitation.
[2017-12-16 11:30] LABS: FOLATE > 20.0 ng/mL
--- NOTE | 2017-12-16 17:45 | CP.PCM.PN ---
<Gale Chris Isidro - Last Filed: 12/16/17 17:39> Subjective - Date & Time of Evaluation Date of Evaluation: 12/16/17 Time of Evaluation: 07:25 - Subjective Subjective: Medicine Note ( Dr. Morrell's service) Patient was seen and examined at bedside. Patient reports that he is doing well but still admits to lightheadedness with ambulation. Patient denies headache, visual changes, chest pain, SOB, nausea, vomiting, dizziness, bilateral lower extremities numbness/tingling. Patient continues to work with PT/OT. Objective - Vital Signs/Intake and Output Vital Signs (last 24 hours): Temp Pulse Resp BP Pulse Ox 98.3 F 77 20 125/76 94 L 12/16/17 16:02 12/16/17 16:02 12/16/17 16:02 12/16/17 16:02 12/16/17 16:31 Intake and Output: 12/16/17 12/16/17 06:59 18:59 Intake Total 1100 Balance 1100 - Medications Medications: Current Medications Acetaminophen (Tylenol 325mg Tab) 650 mg PO Q6 PRN PRN Reason: Headache Amlodipine Besylate (Norvasc) 5 mg PO DAILY [facility] Last Admin: 12/16/17 09:01 Dose: 5 mg Aspirin (Aspirin Chewable) 81 mg PO DAILY [facility] Last Admin: 12/16/17 09:00 Dose: 81 mg Diazepam (Valium) 2 mg PO Q12 PRN PRN Reason: Dizziness Last Admin: 12/16/17 09:01 Dose: 2 mg Enoxaparin Sodium (Lovenox) 40 mg SC DAILY [facility] Last Admin: 12/16/17 09:00 Dose: 40 mg Hydrochlorothiazide (Microzide) 12.5 mg PO DAILY [facility] Last Admin: 12/16/17 09:00 Dose: 12.5 mg Sodium Chloride (Sodium Chloride 0.9%) 1,000 mls @ 100 mls/hr IV .Q10H [facility] Stop: 12/16/17 18:01 Last Admin: 12/16/17 08:06 Dose: 100 mls/hr Losartan Potassium (Cozaar) 100 mg PO DAILY [facility] Last Admin: 12/16/17 09:00 Dose: 100 mg Meclizine HCl (Antivert) 25 mg PO BID [facility] Last Admin: 12/16/17 09:01 Dose: 25 mg Rosuvastatin Calcium (Crestor) 10 mg PO HS [facility] Last Admin: 12/15/17 21:23 Dose: 10 mg - Labs Labs: 12/16/17 07:19 12/16/17 07:19 PT 10.7 SECONDS (9.7-12.2) 12/14/17 10:18 INR 1.0 12/14/17 10:18 APTT 25 SECONDS (21-34) 12/14/17 10:18 - Constitutional Appears: Well, No Acute Distress - Head Exam Head Exam: ATRAUMATIC, NORMAL INSPECTION - Eye Exam Eye Exam: EOMI - ENT Exam ENT Exam: Mucous Membranes Moist - Respiratory Exam Respiratory Exam: Clear to Ausculation Bilateral, NORMAL BREATHING PATTERN. absent: Rhonchi, Wheezes, Respiratory Distress - Cardiovascular Exam Cardiovascular Exam: REGULAR RHYTHM, +S1, +S2. absent: Murmur - GI/Abdominal Exam GI & Abdominal Exam: Soft, Normal Bowel Sounds. absent: Firm, Guarding, Rigid, Tenderness - Extremities Exam Extremities Exam: Full ROM, Normal Inspection. absent: Calf Tenderness, Pedal Edema - Neurological Exam Neurological Exam: Alert, Awake, Oriented x3. absent: Normal Gait Neuro motor strength exam: Left Upper Extremity: 5, Right Upper Extremity: 5, Left Lower Extremity: 5, Right Lower Extremity: 5 - Psychiatric Exam Psychiatric exam: Normal Affect - Skin Skin Exam: Normal Color Assessment and Plan (1) Unsteady gait Assessment & Plan: Consults: ENT, Dr Viramontes--> help appreciated * As per patient, he was seen by ENT and was told examination was WNL Neurology, Dr Daley---> Help appreciated * Management as per recommendation * EMG/ NCS as an outpatient with Dr. Chung. * Vestibular rehab Labs: Troponin negative x3 TSH: 7.86, Thyroxine: 9.06, f/u Free T4 Lipid panel: TGL: 160, Chol: 140, LDL:74 and HDL: 39 Imaging: CT head without contrast 12/14/17: * No definite acute intracranial findings by standard CT criteria. Mild age related neurodegenerative findings as discussed above, stable in the interval. Carotid doppler: Duplex scan does not suggest hemodynamically significant stenosis bilateral MRI brain w/o contrast: No mass-effect or cytotoxic edema throughout the brain. [id number] age-related neuro degenerative findings are appreciate throughout the cerebrum Head MRA: Unremarkable Neck MRA: Unremarkable Medications/Management: * Meclizine 25mg PO BID * Valium 2mg PO Q12H PRN * PT/OT recommendation for subacute rehabilitation or visiting skilled PT upon discharge Status: Acute (2) Hypertension Assessment & Plan: Controlled Continue home med norvasc 5mg PO QD Continue home med valsartan-hctz 160-12.5 -> switched to in house meds losartan -hctz 100-12.5mg PO QD Status: Chronic (3) Hyperlipidemia Assessment & Plan: Lipid panel: TGL: 160, Chol: 140, LDL:74 and HDL: 39 Medication: * Crestor 10mg PO HS * ASA 81mg PO QD Status: Chronic (4) Prophylactic measure Assessment & Plan: * GI prophylaxis not indicated * DVT: Lovenox 40mg SC QD and SCDs * PT/OT * Heart healthy diet w/ 2g Na restrictio * Fall precautions * Bedside commode All management discuss with Dr. Morrell Status: Acute <Shayla Morrell V - Last Filed: 12/18/17 13:49> Objective - Vital Signs/Intake and Output Vital Signs (last 24 hours): Temp Pulse Resp BP Pulse Ox 98 F 86 20 122/72 94 L 12/18/17 08:38 12/18/17 08:38 12/18/17 08:38 12/18/17 08:38 12/18/17 08:38 Intake and Output: 12/18/17 12/18/17 06:59 18:59 Intake Total 400 240 Output Total 400 Balance 0 240 - Medications Medications: Current Medications Acetaminophen (Tylenol 325mg Tab) 650 mg PO Q6 PRN PRN Reason: Headache Amlodipine Besylate (Norvasc) 5 mg PO DAILY [facility] Last Admin: 12/18/17 09:56 Dose: 5 mg Aspirin (Aspirin Chewable) 81 mg PO DAILY [facility] Last Admin: 12/18/17 09:55 Dose: 81 mg Diazepam (Valium) 2 mg PO Q12 PRN PRN Reason: Dizziness Last Admin: 12/17/17 10:36 Dose: 2 mg Enoxaparin Sodium (Lovenox) 40 mg SC DAILY [facility] Last Admin: 12/18/17 09:55 Dose: 40 mg Hydrochlorothiazide (Microzide) 12.5 mg PO DAILY [facility] Last Admin: 12/18/17 09:55 Dose: 12.5 mg Losartan Potassium (Cozaar) 100 mg PO DAILY [facility] Last Admin: 12/18/17 09:55 Dose: 100 mg Meclizine HCl (Antivert) 25 mg PO BID [facility] Last Admin: 12/18/17 09:55 Dose: 25 mg Rosuvastatin Calcium (Crestor) 10 mg PO HS [facility] Last Admin: 12/17/17 21:14 Dose: 10 mg - Labs Labs: 12/18/17 07:38 12/18/17 07:38 PT 10.7 SECONDS (9.7-12.2) 12/14/17 10:18 INR 1.0 12/14/17 10:18 APTT 25 SECONDS (21-34) 12/14/17 10:18 Attending/Attestation - Attestation I have personally seen and examined this patient.: Yes I have fully participated in the care of the patient.: Yes I have reviewed all pertinent clinical information, including history, physical exam and plan: Yes Notes (Text): This is late computer entry for 12/16/17. Patient seen, examined, and case discussed with day-time resident. Patient seen this morning. Physical therapy has recommended for subacute rehab. I have discussed with the patient he is amenable to [facility]. I have spoken with case management and social work. I have changed his status to inpatient given patient has severe gait impairment. Assessment/Plan (1) Unsteady gait Lightheadedness Assessment & Plan: Consults: * ENT, Dr Viramontes--> help appreciated * As per patient, he was seen by ENT and was told examination was WNL * Neurology, Dr Daley---> Help appreciated * Management as per recommendation * EMG/ NCS as an outpatient with Dr. Chung. * Vestibular rehab Labs: * Troponin negative x3 * TSH: 7.86, Thyroxine: 9.06, f/u Free T4 * Lipid panel: TGL: 160, Chol: 140, LDL:74 and HDL: 39 Imaging: * CT head without contrast 12/14/17: * No definite acute intracranial findings by standard CT criteria. Mild age related neurodegenerative findings as discussed above, stable in the interval. * Carotid doppler: Duplex scan does not suggest hemodynamically significant stenosis bilateral * MRI brain w/o contrast: No mass-effect or cytotoxic edema throughout the brain. [id number] age-related neuro degenerative findings are appreciate throughout the cerebrum * Head MRA: Unremarkable * Neck MRA: Unremarkable Medications: Meclizine 25mg PO BID, Valium 2mg PO Q12H PRN PT/OT recommendation for subacute rehabilitation or visiting skilled PT upon discharge-->patient wants [facility] Status: Acute (2) Hypertension Assessment & Plan: * Controlled * Continue home med norvasc 5mg PO QD * Continue home med valsartan-hctz 160-12.5 -> switched to in house meds losartan-hctz 100-12.5mg PO QD Status: Chronic (3) Hyperlipidemia Assessment & Plan: * Lipid panel: TGL: 160, Chol: 140, LDL:74 and HDL: 39 Medication: * Crestor 10mg PO HS * ASA 81mg PO QD Status: Chronic (4) Prophylactic measure Assessment & Plan: * GI prophylaxis not indicated * DVT: Lovenox 40mg SC QD and SCDs * PT/OT * Heart healthy diet w/ 2g Na restriction * Fall precautionn Disposition: Changed to inpatient given severe impairment secondary to acute BPPV. Physical therapist: Pt exhibits severe, evolving impairment of all functional mobility and ambulation secondary to acute BPPV disorder. Pt had significant relief w/ BPPV PT tx w/ Stany radha. Pt has significant residual impairment of standing balance and ambulation being a candidate TCU/short- termSAR. Cont PT.
--- NOTE | 2017-12-16 20:01 | CON ---
DATE: 12/16/2017 REQUESTING PHYSICIAN: Shayla Morrell DO REASON FOR CONSULTATION: Dizziness. HISTORY: This is a 72-year-old male, for the past two days has been having unsteady gait upon standing. It is constant from standing and moderate in intensity. There is no hearing loss, no ringing in the ears. PAST MEDICAL HISTORY: As noted in the chart by me. MEDICATIONS: As noted in the chart by me. ALLERGIES: NOTED IN THE CHART BY ME. PHYSICAL EXAMINATION: HEAD: Atraumatic, normocephalic. FACE: Good facial movements bilaterally. CONSTITUTIONAL: Well fed, well nourished. COMMUNICATION: Communicates well and appropriately. EXTERNAL NOSE AND EARS: No masses. No lesions. No erythema. No edema. INTERNAL NOSE: Deviated septum. No masses. No lesions. No erythema. No edema. ORAL CAVITY AND OROPHARYNX: No masses. No lesions. No erythema. No edema. LIPS AND GUMS: No masses. No lesions. No erythema. No edema. NECK: Supple. THYROID: No thyromegaly. No goiter. LYMPH NODES: No lymphadenopathy of the neck. ASSESSMENT: 1. Deviated septum. 2. Dizziness. PLAN: Dizziness, unlikely to be from the ears. This is not associated with the sensation of room spinning, and there is also no hearing loss or ringing in the ear. The patient is okay to be discharged home from Neurology point of view. We will order an EMG as an outpatient. The patient is okay to go home from my point of view as long as the patient can ambulate safely and take p.o. and is cleared by Neurology. Ghanshyam Viramontes MD
--- NOTE | 2017-12-17 07:53 | CP.PCM.PN ---
Subjective - Date & Time of Evaluation Date of Evaluation: 12/17/17 Time of Evaluation: 07:53 - Subjective Subjective: Mr. Caraballo was seen and examined at the bedside. He is alert, oriented, claims of improved gait instability since yesterday including dizziness. According to staff, the patient occassionally forgets to use call light and ambulates to the bathroom by himself. He denies any headache, nausea, or vomiting, and state of physical therapy yesterday also help with his dizziness. He is able to follow simple commands. There was no untoward events overnight. Objective - Vital Signs/Intake and Output Vital Signs (last 24 hours): Temp Pulse Resp BP Pulse Ox 97.8 F 76 20 116/71 96 12/17/17 00:00 12/17/17 00:00 12/17/17 00:00 12/17/17 00:00 12/17/17 00:00 Intake and Output: 12/17/17 12/17/17 06:59 18:59 Intake Total 500 Balance 500 - Medications Medications: Current Medications Acetaminophen (Tylenol 325mg Tab) 650 mg PO Q6 PRN PRN Reason: Headache Amlodipine Besylate (Norvasc) 5 mg PO DAILY [facility] Last Admin: 12/16/17 09:01 Dose: 5 mg Aspirin (Aspirin Chewable) 81 mg PO DAILY [facility] Last Admin: 12/16/17 09:00 Dose: 81 mg Diazepam (Valium) 2 mg PO Q12 PRN PRN Reason: Dizziness Last Admin: 12/16/17 09:01 Dose: 2 mg Enoxaparin Sodium (Lovenox) 40 mg SC DAILY [facility] Last Admin: 12/16/17 09:00 Dose: 40 mg Hydrochlorothiazide (Microzide) 12.5 mg PO DAILY [facility] Last Admin: 12/16/17 09:00 Dose: 12.5 mg Losartan Potassium (Cozaar) 100 mg PO DAILY [facility] Last Admin: 12/16/17 09:00 Dose: 100 mg Meclizine HCl (Antivert) 25 mg PO BID [facility] Last Admin: 12/16/17 17:52 Dose: 25 mg Rosuvastatin Calcium (Crestor) 10 mg PO HS [facility] Last Admin: 12/16/17 21:28 Dose: 10 mg - Labs Labs: 12/16/17 07:19 12/16/17 07:19 PT 10.7 SECONDS (9.7-12.2) 12/14/17 10:18 INR 1.0 12/14/17 10:18 APTT 25 SECONDS (21-34) 12/14/17 10:18 - Constitutional Appears: No Acute Distress - Head Exam Head Exam: NORMAL INSPECTION - Eye Exam Pupil Exam: PERRL - Neurological Exam Neurological Exam: Alert, Awake, Oriented x3 Neuro motor strength exam: Left Upper Extremity: 5, Right Upper Extremity: 5, Left Lower Extremity: 5, Right Lower Extremity: 5 Additional comments: neurological unchanged from previous examination. Assessment and Plan (1) Vertigo Assessment & Plan: Case discussed with Dr. Daley, continue all current medical and physical regimen. Recommend hydration. EMG/ NCS as an outpatient with Dr. Chung. Status: Acute
[2017-12-17 08:04] LABS: BASO % 0.8 % (0.0-2.0); EOS # 0.1 K/uL (0.0-0.7); EOS % 2.4 % (0.0-4.0); HEMOGLOBIN 14.5 g/dL (12.0-18.0); LYMPH % 19.1 % (20.0-40.0); MEAN CELL VOLUME 98.9 fL (80.0-94.0); MEAN CORPUSCULAR HEMOGLOBIN 35.3 pg (27.0-31.0); MEAN CORPUSCULAR HGB CONC 35.7 g/dL (33.0-37.0); MEAN PLATELET VOLUME 7.8 fL (7.2-11.7); MONO # 0.5 K/uL (0.0-0.8); MONO % 10.2 % (0.0-10.0); NEUT # 3.6 K/uL (1.8-7.0); NEUT % 67.5 % (50.0-75.0); RBC 4.1 Mil/uL (4.40-5.90); RED CELL DISTRIBUTION WIDTH 12.8 % (11.5-14.5); WHITE BLOOD COUNT 5.4 K/uL (4.8-10.8)
[2017-12-17 08:19] LABS: ALB/GLOB RATIO 1.3 (1.0-2.1); ALBUMIN 4.3 g/dL (3.5-5.0); ALT/SGPT 44 U/L (21-72); AST/SGOT 42 U/L (17-59); BLOOD UREA NITROGEN 13 mg/dL (9-20); CALCIUM 9.5 mg/dl (8.6-10.4); GFR AFRICAN-AMERICAN > 60; GFR NON-AFRICAN AMERICAN > 60
[2017-12-17] MEDS: Enoxaparin 40 mg Syringe SC SCH (10:38)
--- NOTE | 2017-12-17 13:40 | CP.PCM.PN ---
<Gale Chris Isidro - Last Filed: 12/17/17 15:40> Subjective - Date & Time of Evaluation Date of Evaluation: 12/17/17 Time of Evaluation: 07:20 - Subjective Subjective: Medicine Note ( Dr. Morrell's service) Patient was seen and examined at bedside. Patient reports that he is doing well but still admits to mild lightheadedness with ambulation. Patient denies headache, visual changes, chest pain, SOB, nausea, vomiting, dizziness, bilateral lower extremities numbness/tingling. Patient continues to work with PT /OT. Objective - Vital Signs/Intake and Output Vital Signs (last 24 hours): Temp Pulse Resp BP Pulse Ox 97.8 F 78 20 127/82 96 12/17/17 08:00 12/17/17 08:00 12/17/17 08:00 12/17/17 08:00 12/17/17 08:00 Intake and Output: 12/17/17 12/17/17 06:59 18:59 Intake Total 500 Balance 500 - Medications Medications: Current Medications Acetaminophen (Tylenol 325mg Tab) 650 mg PO Q6 PRN PRN Reason: Headache Amlodipine Besylate (Norvasc) 5 mg PO DAILY [facility] Last Admin: 12/17/17 10:36 Dose: 5 mg Aspirin (Aspirin Chewable) 81 mg PO DAILY [facility] Last Admin: 12/17/17 10:35 Dose: 81 mg Diazepam (Valium) 2 mg PO Q12 PRN PRN Reason: Dizziness Last Admin: 12/17/17 10:36 Dose: 2 mg Enoxaparin Sodium (Lovenox) 40 mg SC DAILY [facility] Last Admin: 12/17/17 10:38 Dose: 40 mg Hydrochlorothiazide (Microzide) 12.5 mg PO DAILY [facility] Last Admin: 12/17/17 10:36 Dose: 12.5 mg Losartan Potassium (Cozaar) 100 mg PO DAILY [facility] Last Admin: 12/17/17 10:36 Dose: 100 mg Meclizine HCl (Antivert) 25 mg PO BID [facility] Last Admin: 12/17/17 10:36 Dose: 25 mg Rosuvastatin Calcium (Crestor) 10 mg PO HS [facility] Last Admin: 12/16/17 21:28 Dose: 10 mg - Labs Labs: 12/17/17 07:48 06/22/18 07:48 PT 10.7 SECONDS (9.7-12.2) 12/14/17 10:18 INR 1.0 12/14/17 10:18 APTT 25 SECONDS (21-34) 12/14/17 10:18 - Constitutional Appears: Well, No Acute Distress - Head Exam Head Exam: ATRAUMATIC, NORMAL INSPECTION - Eye Exam Eye Exam: EOMI, Normal appearance - ENT Exam ENT Exam: Mucous Membranes Moist - Respiratory Exam Respiratory Exam: Clear to Ausculation Bilateral, NORMAL BREATHING PATTERN. absent: Rhonchi, Wheezes - Cardiovascular Exam Cardiovascular Exam: REGULAR RHYTHM, +S1, +S2. absent: Murmur - GI/Abdominal Exam GI & Abdominal Exam: Soft, Normal Bowel Sounds - Extremities Exam Extremities Exam: Normal Inspection. absent: Calf Tenderness, Pedal Edema - Neurological Exam Neurological Exam: Alert, Awake, Oriented x3 Neuro motor strength exam: Left Lower Extremity: 5, Right Lower Extremity: 5 - Psychiatric Exam Psychiatric exam: Normal Affect - Skin Skin Exam: Normal Color Assessment and Plan (1) Unsteady gait Assessment & Plan: Consults: ENT, Dr Viramontes--> help appreciated * As per patient, he was seen by ENT and was told examination was WNL Neurology, Dr Daley---> Help appreciated * Management as per recommendation * EMG/ NCS as an outpatient with Dr. Chung. * Vestibular rehab Labs: Troponin negative x3 TSH: 7.86, Thyroxine: 9.06, f/u Free T4 Lipid panel: TGL: 160, Chol: 140, LDL:74 and HDL: 39 Imaging: CT head without contrast 12/14/17: * No definite acute intracranial findings by standard CT criteria. Mild age related neurodegenerative findings as discussed above, stable in the interval. Carotid doppler: Duplex scan does not suggest hemodynamically significant stenosis bilateral MRI brain w/o contrast: No mass-effect or cytotoxic edema throughout the brain. [id number] age-related neuro degenerative findings are appreciate throughout the cerebrum Head MRA: Unremarkable Neck MRA: Unremarkable Medications/Management: * Meclizine 25mg PO BID * Valium 2mg PO Q12H PRN * PT/OT recommendation for subacute rehabilitation or visiting skilled PT upon discharge Status: Acute (2) Hypertension Assessment & Plan: Controlled Continue home med norvasc 5mg PO QD Continue home med valsartan-hctz 160-12.5 -> switched to in house meds losartan -hctz 100-12.5mg PO QD Status: Chronic (3) Hyperlipidemia Assessment & Plan: Lipid panel: TGL: 160, Chol: 140, LDL:74 and HDL: 39 Medication: * Crestor 10mg PO HS * ASA 81mg PO QD Status: Chronic (4) Prophylactic measure Assessment & Plan: * GI prophylaxis not indicated * DVT: Lovenox 40mg SC QD and SCDs * PT/OT * Heart healthy diet w/ 2g Na restrictio * Fall precautions * Bedside commode Disposition: [facility]; 12/19 or All management discuss with Dr. Morrell Status: Acute <Shayla Morrell V - Last Filed: 12/18/17 13:55> Objective - Vital Signs/Intake and Output Vital Signs (last 24 hours): Temp Pulse Resp BP Pulse Ox 98 F 86 20 122/72 94 L 12/18/17 08:38 12/18/17 08:38 12/18/17 08:38 12/18/17 08:38 12/18/17 08:38 Intake and Output: 12/18/17 12/18/17 06:59 18:59 Intake Total 400 240 Output Total 400 Balance 0 240 - Medications Medications: Current Medications Acetaminophen (Tylenol 325mg Tab) 650 mg PO Q6 PRN PRN Reason: Headache Amlodipine Besylate (Norvasc) 5 mg PO DAILY [facility] Last Admin: 12/18/17 09:56 Dose: 5 mg Aspirin (Aspirin Chewable) 81 mg PO DAILY [facility] Last Admin: 12/18/17 09:55 Dose: 81 mg Diazepam (Valium) 2 mg PO Q12 PRN PRN Reason: Dizziness Last Admin: 12/17/17 10:36 Dose: 2 mg Enoxaparin Sodium (Lovenox) 40 mg SC DAILY [facility] Last Admin: 12/18/17 09:55 Dose: 40 mg Hydrochlorothiazide (Microzide) 12.5 mg PO DAILY [facility] Last Admin: 12/18/17 09:55 Dose: 12.5 mg Losartan Potassium (Cozaar) 100 mg PO DAILY [facility] Last Admin: 12/18/17 09:55 Dose: 100 mg Meclizine HCl (Antivert) 25 mg PO BID [facility] Last Admin: 12/18/17 09:55 Dose: 25 mg Rosuvastatin Calcium (Crestor) 10 mg PO HS [facility] Last Admin: 12/17/17 21:14 Dose: 10 mg - Labs Labs: 12/18/17 07:38 12/18/17 07:38 PT 10.7 SECONDS (9.7-12.2) 12/14/17 10:18 INR 1.0 12/14/17 10:18 APTT 25 SECONDS (21-34) 12/14/17 10:18 Attending/Attestation - Attestation I have personally seen and examined this patient.: Yes I have fully participated in the care of the patient.: Yes I have reviewed all pertinent clinical information, including history, physical exam and plan: Yes Notes (Text): This is a late computer entry for 12/17/17. Patient seen, examined, and case discussed with day-time resident. Patient changed rooms overnight. Patient seen today; would like to continue working with physical therapy. Electrolytes repleted. Planning for Wednesday [facility] Assessment/Plan (1) Unsteady gait Lightheadedness Assessment & Plan: Consults: * ENT, Dr Viramontes--> help appreciated * As per patient, he was seen by ENT and was told examination was WNL * Neurology, Dr Daley---> Help appreciated * Management as per recommendation * EMG/ NCS as an outpatient with Dr. Chung. * Vestibular rehab Labs: * Troponin negative x3 * TSH: 7.86, Thyroxine: 9.06, f/u Free T4 * Lipid panel: TGL: 160, Chol: 140, LDL:74 and HDL: 39 Imaging: * CT head without contrast 12/14/17: * No definite acute intracranial findings by standard CT criteria. Mild age related neurodegenerative findings as discussed above, stable in the interval. * Carotid doppler: Duplex scan does not suggest hemodynamically significant stenosis bilateral * MRI brain w/o contrast: No mass-effect or cytotoxic edema throughout the brain. [id number] age-related neuro degenerative findings are appreciate throughout the cerebrum * Head MRA: Unremarkable * Neck MRA: Unremarkable * Medications: Meclizine 25mg PO BID, Valium 2mg PO Q12H PRN * PT/OT recommendation for subacute rehabilitation or visiting skilled PT upon discharge-->patient wants [facility] Status: Acute (2) Hypertension Assessment & Plan: * Controlled * Continue home med norvasc 5mg PO QD * Continue home med valsartan-hctz 160-12.5 -> switched to in house meds losartan-hctz 100-12.5mg PO QD Status: Chronic (3) Hyperlipidemia Assessment & Plan: * Lipid panel: TGL: 160, Chol: 140, LDL:74 and HDL: 39 Medication: * Crestor 10mg PO HS * ASA 81mg PO QD Status: Chronic (4) Prophylactic measure Assessment & Plan: * GI prophylaxis not indicated * DVT: Lovenox 40mg SC QD and SCDs * PT/OT * Heart healthy diet w/ 2g Na restriction * Fall precautionn Disposition: Changed to inpatient given severe impairment secondary to acute BPPV. Physical therapist: Pt exhibits severe, evolving impairment of all functional mobility and ambulation secondary to acute BPPV disorder. Pt had significant relief w/ BPPV PT tx w/ Jac garcia. Pt has significant residual impairment of standing balance and ambulation being a candidate TCU/short- termSAR. Cont PT. Planning for discharge on Wednesday. 12/19/17
[2017-12-17] MEDS: Magnesium Sulfate 1 gm in D5W 1 GM/100 ML BAG IVPB SCH ×4 (17:18→17:49)
--- NOTE | 2017-12-18 00:57 | CP.PCM.PN ---
<Alma Hdz - Last Filed: 12/18/17 00:54> Subjective - Date & Time of Evaluation Date of Evaluation: 12/18/17 Time of Evaluation: 00:54 - Subjective Subjective: Medicine progress note for Dr. Morrell Patient was seen and examined at bedside in no acute distress. Patient reports feeling well and has no complaints. Patient had a normal BM yesterday and denies dysuira and hematuria. Patient denies chest pain, dyspnea, abdominal pain , nausea, vomiting, fevers, leg pain, and leg swelling. Objective - Vital Signs/Intake and Output Vital Signs (last 24 hours): Temp Pulse Resp BP Pulse Ox 98.1 F 87 20 130/74 96 12/17/17 16:00 12/17/17 16:00 12/17/17 16:00 12/17/17 16:00 12/17/17 16:00 Intake and Output: 12/17/17 12/18/17 18:59 06:59 Intake Total 400 Output Total 400 Balance 0 - Medications Medications: Current Medications Acetaminophen (Tylenol 325mg Tab) 650 mg PO Q6 PRN PRN Reason: Headache Amlodipine Besylate (Norvasc) 5 mg PO DAILY [facility] Last Admin: 12/17/17 10:36 Dose: 5 mg Aspirin (Aspirin Chewable) 81 mg PO DAILY [facility] Last Admin: 12/17/17 10:35 Dose: 81 mg Diazepam (Valium) 2 mg PO Q12 PRN PRN Reason: Dizziness Last Admin: 12/17/17 10:36 Dose: 2 mg Enoxaparin Sodium (Lovenox) 40 mg SC DAILY [facility] Last Admin: 12/17/17 10:38 Dose: 40 mg Hydrochlorothiazide (Microzide) 12.5 mg PO DAILY [facility] Last Admin: 12/17/17 10:36 Dose: 12.5 mg Losartan Potassium (Cozaar) 100 mg PO DAILY [facility] Last Admin: 12/17/17 10:36 Dose: 100 mg Meclizine HCl (Antivert) 25 mg PO BID [facility] Last Admin: 12/17/17 17:17 Dose: 25 mg Rosuvastatin Calcium (Crestor) 10 mg PO HS [facility] Last Admin: 12/17/17 21:14 Dose: 10 mg - Labs Labs: 12/17/17 07:48 12/17/17 07:48 PT 10.7 SECONDS (9.7-12.2) 12/14/17 10:18 INR 1.0 12/14/17 10:18 APTT 25 SECONDS (21-34) 12/14/17 10:18 - Additional Findings Additional findings: - Constitutional Appears: Well, No Acute Distress - Head Exam Head Exam: ATRAUMATIC, NORMAL INSPECTION - Eye Exam Eye Exam: EOMI, Normal appearance - ENT Exam ENT Exam: Mucous Membranes Moist - Respiratory Exam Respiratory Exam: Clear to Ausculation Bilateral, NORMAL BREATHING PATTERN. absent: Rhonchi, Wheezes - Cardiovascular Exam Cardiovascular Exam: REGULAR RHYTHM, +S1, +S2. absent: Murmur - GI/Abdominal Exam GI & Abdominal Exam: Soft, Normal Bowel Sounds - Extremities Exam Extremities Exam: Normal Inspection. absent: Calf Tenderness, Pedal Edema - Neurological Exam Neurological Exam: Alert, Awake, Oriented x3 Neuro motor strength exam: Left Lower Extremity: 5, Right Lower Extremity: 5 - Psychiatric Exam Psychiatric exam: Normal Affect - Skin Skin Exam: Normal Color Assessment and Plan - Assessment and Plan (Free Text) Plan: (1) Unsteady gait Assessment & Plan: Consults: * ENT, Dr Viramontes--> help appreciated * As per patient, he was seen by ENT and was told examination was WNL * Neurology, Dr Daley---> Help appreciated * Management as per recommendation * EMG/ NCS as an outpatient with Dr. Chung. * Vestibular rehab Labs: * Troponin negative x3 * TSH: 7.86, Thyroxine: 9.06, f/u Free T4 * Lipid panel: TGL: 160, Chol: 140, LDL:74 and HDL: 39 Imaging: * CT head without contrast 12/14/17: No definite acute intracranial findings by standard CT criteria. Mild age related neurodegenerative findings as discussed above, stable in the interval. * Carotid doppler: Duplex scan does not suggest hemodynamically significant stenosis bilateral * MRI brain w/o contrast: No mass-effect or cytotoxic edema throughout the brain. [id number] age-related neuro degenerative findings are appreciate throughout the cerebrum * Head MRA: Unremarkable * Neck MRA: Unremarkable Medications/Management: * Meclizine 25mg PO BID * Valium 2mg PO Q12H PRN * PT/OT recommendation for subacute rehabilitation or visiting skilled PT upon discharge (2) Hypertension Assessment & Plan: Controlled * Continue home med norvasc 5mg PO QD * Continue home med valsartan-hctz 160-12.5 -> switched to in house meds losartan-hctz 100-12.5mg PO QD (3) Hyperlipidemia Assessment & Plan: Lipid panel: TGL: 160, Chol: 140, LDL:74 and HDL: 39 Medication: * Crestor 10mg PO HS * ASA 81mg PO QD (4) Prophylactic measure Assessment & Plan: * GI prophylaxis not indicated * DVT: Lovenox 40mg SC QD and SCDs * PT/OT * Heart healthy diet w/ 2g Na restrictio * Fall precautions * Bedside commode Disposition: Plans for discharge to [facility] by Wednesday or Wednesday; 12/19 or <Shayla oMrrell V - Last Filed: 12/18/17 13:56> Objective - Vital Signs/Intake and Output Vital Signs (last 24 hours): Temp Pulse Resp BP Pulse Ox 98 F 86 20 122/72 94 L 12/18/17 08:38 12/18/17 08:38 12/18/17 08:38 12/18/17 08:38 12/18/17 08:38 Intake and Output: 12/18/17 12/18/17 06:59 18:59 Intake Total 400 240 Output Total 400 Balance 0 240 - Medications Medications: Current Medications Acetaminophen (Tylenol 325mg Tab) 650 mg PO Q6 PRN PRN Reason: Headache Amlodipine Besylate (Norvasc) 5 mg PO DAILY [facility] Last Admin: 12/18/17 09:56 Dose: 5 mg Aspirin (Aspirin Chewable) 81 mg PO DAILY [facility] Last Admin: 12/18/17 09:55 Dose: 81 mg Diazepam (Valium) 2 mg PO Q12 PRN PRN Reason: Dizziness Last Admin: 12/17/17 10:36 Dose: 2 mg Enoxaparin Sodium (Lovenox) 40 mg SC DAILY [facility] Last Admin: 12/18/17 09:55 Dose: 40 mg Hydrochlorothiazide (Microzide) 12.5 mg PO DAILY [facility] Last Admin: 12/18/17 09:55 Dose: 12.5 mg Losartan Potassium (Cozaar) 100 mg PO DAILY [facility] Last Admin: 12/18/17 09:55 Dose: 100 mg Meclizine HCl (Antivert) 25 mg PO BID [facility] Last Admin: 12/18/17 09:55 Dose: 25 mg Rosuvastatin Calcium (Crestor) 10 mg PO HS [facility] Last Admin: 12/17/17 21:14 Dose: 10 mg - Labs Labs: 12/18/17 07:38 12/18/17 07:38 PT 10.7 SECONDS (9.7-12.2) 12/14/17 10:18 INR 1.0 12/14/17 10:18 APTT 25 SECONDS (21-34) 12/14/17 10:18 Attending/Attestation - Attestation I have personally seen and examined this patient.: Yes I have fully participated in the care of the patient.: Yes I have reviewed all pertinent clinical information, including history, physical exam and plan: Yes Notes (Text): Patient seen, examined, and case discussed with day-time resident. Patient seen today; would like to continue working with physical therapy. Planning for Wednesday discharge to [facility]. Assessment/Plan (1) Unsteady gait Lightheadedness Assessment & Plan: Consults: * ENT, Dr Viramontes--> help appreciated * As per patient, he was seen by ENT and was told examination was WNL * Neurology, Dr Daley---> Help appreciated * Management as per recommendation * EMG/ NCS as an outpatient with Dr. Chung. * Vestibular rehab Labs: * Troponin negative x3 * TSH: 7.86, Thyroxine: 9.06, f/u Free T4 * Lipid panel: TGL: 160, Chol: 140, LDL:74 and HDL: 39 Imaging: * CT head without contrast 12/14/17: * No definite acute intracranial findings by standard CT criteria. Mild age related neurodegenerative findings as discussed above, stable in the interval. * Carotid doppler: Duplex scan does not suggest hemodynamically significant stenosis bilateral * MRI brain w/o contrast: No mass-effect or cytotoxic edema throughout the brain. [id number] age-related neuro degenerative findings are appreciate throughout the cerebrum * Head MRA: Unremarkable * Neck MRA: Unremarkable * Medications: Meclizine 25mg PO BID, Valium 2mg PO Q12H PRN * PT/OT recommendation for subacute rehabilitation or visiting skilled PT upon discharge-->patient wants [facility] Status: Acute (2) Hypertension Assessment & Plan: * Controlled * Continue home med norvasc 5mg PO QD * Continue home med valsartan-hctz 160-12.5 -> switched to in house meds losartan-hctz 100-12.5mg PO QD Status: Chronic (3) Hyperlipidemia Assessment & Plan: * Lipid panel: TGL: 160, Chol: 140, LDL:74 and HDL: 39 Medication: * Crestor 10mg PO HS * ASA 81mg PO QD Status: Chronic (4) Prophylactic measure Assessment & Plan: * GI prophylaxis not indicated * DVT: Lovenox 40mg SC QD and SCDs * PT/OT * Heart healthy diet w/ 2g Na restriction * Fall precautionn Disposition: Changed to inpatient given severe impairment secondary to acute BPPV. Physical therapist: Pt exhibits severe, evolving impairment of all functional mobility and ambulation secondary to acute BPPV disorder. Pt had significant relief w/ BPPV PT tx w/ Jac garcia. Pt has significant residual impairment of standing balance and ambulation being a candidate TCU/short- termSAR. Cont PT. Planning for discharge on Wednesday. 12/19/17
[2017-12-18 07:56] LABS: BASO % 0.8 % (0.0-2.0); EOS # 0.2 K/uL (0.0-0.7); HEMOGLOBIN 15.4 g/dL (12.0-18.0); LYMPH # 1.3 K/uL (1.0-4.3); LYMPH % 25.6 % (20.0-40.0); MEAN CELL VOLUME 98.2 fL (80.0-94.0); MEAN CORPUSCULAR HEMOGLOBIN 34.5 pg (27.0-31.0); MEAN CORPUSCULAR HGB CONC 35.1 g/dL (33.0-37.0); MEAN PLATELET VOLUME 7.8 fL (7.2-11.7); MONO # 0.6 K/uL (0.0-0.8); MONO % 12.1 % (0.0-10.0); NEUT # 3.1 K/uL (1.8-7.0); NEUT % 58.5 % (50.0-75.0); NRBC % 0.3 % (0.0-2.0); RBC 4.47 Mil/uL (4.40-5.90); RED CELL DISTRIBUTION WIDTH 12.7 % (11.5-14.5); WHITE BLOOD COUNT 5.2 K/uL (4.8-10.8)
[2017-12-18 08:00] LABS: ALB/GLOB RATIO 1.4 (1.0-2.1); ALBUMIN 4.7 g/dL (3.5-5.0); ALT/SGPT 58 U/L (21-72); AST/SGOT 54 U/L (17-59); BLOOD UREA NITROGEN 14 mg/dL (9-20); GFR AFRICAN-AMERICAN > 60; GFR NON-AFRICAN AMERICAN 60
[2017-12-18] MEDS: Enoxaparin 40 mg Syringe SC SCH (09:55)
[2017-12-19 01:55] VITALS: O2SAT 96
--- NOTE | 2017-12-19 07:57 | CP.PCM.PN ---
Subjective - Date & Time of Evaluation Date of Evaluation: 12/19/17 Time of Evaluation: 07:15 - Subjective Subjective: Medicine progress note for Dr. Morrell Patient was seen and examined at bedside in no acute distress. Objective - Vital Signs/Intake and Output Vital Signs (last 24 hours): Temp Pulse Resp BP Pulse Ox 98 F 68 20 120/73 96 12/19/17 00:00 12/19/17 00:00 12/19/17 00:00 12/19/17 00:00 12/19/17 00:00 Intake and Output: 12/19/17 12/19/17 06:59 18:59 Intake Total 350 200 Balance 350 200 - Medications Medications: Current Medications Acetaminophen (Tylenol 325mg Tab) 650 mg PO Q6 PRN PRN Reason: Headache Amlodipine Besylate (Norvasc) 5 mg PO DAILY [facility] Last Admin: 12/18/17 09:56 Dose: 5 mg Aspirin (Aspirin Chewable) 81 mg PO DAILY [facility] Last Admin: 12/18/17 09:55 Dose: 81 mg Diazepam (Valium) 2 mg PO Q12 PRN PRN Reason: Dizziness Last Admin: 12/17/17 10:36 Dose: 2 mg Enoxaparin Sodium (Lovenox) 40 mg SC DAILY [facility] Last Admin: 12/18/17 09:55 Dose: 40 mg Hydrochlorothiazide (Microzide) 12.5 mg PO DAILY [facility] Last Admin: 12/18/17 09:55 Dose: 12.5 mg Losartan Potassium (Cozaar) 100 mg PO DAILY [facility] Last Admin: 12/18/17 09:55 Dose: 100 mg Meclizine HCl (Antivert) 25 mg PO BID [facility] Last Admin: 12/18/17 17:34 Dose: 25 mg Rosuvastatin Calcium (Crestor) 10 mg PO HS [facility] Last Admin: 12/18/17 21:33 Dose: 10 mg - Labs Labs: 12/18/17 07:38 12/18/17 07:38 PT 10.7 SECONDS (9.7-12.2) 12/14/17 10:18 INR 1.0 12/14/17 10:18 APTT 25 SECONDS (21-34) 12/14/17 10:18 - Additional Findings Additional findings: - Constitutional Appears: Well, No Acute Distress - Head Exam Head Exam: ATRAUMATIC, NORMAL INSPECTION - Eye Exam Eye Exam: EOMI, Normal appearance - ENT Exam ENT Exam: Mucous Membranes Moist - Respiratory Exam Respiratory Exam: Clear to Ausculation Bilateral, NORMAL BREATHING PATTERN. absent: Rhonchi, Wheezes - Cardiovascular Exam Cardiovascular Exam: REGULAR RHYTHM, +S1, +S2. absent: Murmur - GI/Abdominal Exam GI & Abdominal Exam: Soft, Normal Bowel Sounds - Extremities Exam Extremities Exam: Normal Inspection. absent: Calf Tenderness, Pedal Edema - Neurological Exam Neurological Exam: Alert, Awake, Oriented x3 Neuro motor strength exam: Left Lower Extremity: 5, Right Lower Extremity: 5 - Psychiatric Exam Psychiatric exam: Normal Affect - Skin Skin Exam: Normal Color Assessment and Plan - Assessment and Plan (Free Text) Assessment: (1) Unsteady gait Assessment & Plan: Consults: * ENT, Dr Viramontes--> help appreciated * As per patient, he was seen by ENT and was told examination was WNL * Neurology, Dr Daley---> Help appreciated * Management as per recommendation * EMG/ NCS as an outpatient with Dr. Chung. * Vestibular rehab Labs: * Troponin negative x3 * TSH: 7.86, Thyroxine: 9.06, f/u Free T4 * Lipid panel: TGL: 160, Chol: 140, LDL:74 and HDL: 39 Imaging: * CT head without contrast 12/14/17: No definite acute intracranial findings by standard CT criteria. Mild age related neurodegenerative findings as discussed above, stable in the interval. * Carotid doppler: Duplex scan does not suggest hemodynamically significant stenosis bilateral * MRI brain w/o contrast: No mass-effect or cytotoxic edema throughout the brain. [id number] age-related neuro degenerative findings are appreciate throughout the cerebrum * Head MRA: Unremarkable * Neck MRA: Unremarkable Medications/Management: * Meclizine 25mg PO BID * Valium 2mg PO Q12H PRN * PT/OT recommendation for subacute rehabilitation or visiting skilled PT upon discharge (2) Hypertension Assessment & Plan: Controlled * Continue home med norvasc 5mg PO QD * Continue home med valsartan-hctz 160-12.5 -> switched to in house meds losartan-hctz 100-12.5mg PO QD (3) Hyperlipidemia Assessment & Plan: Lipid panel: TGL: 160, Chol: 140, LDL:74 and HDL: 39 Medication: * Crestor 10mg PO HS * ASA 81mg PO QD (4) Prophylactic measure Assessment & Plan: * GI prophylaxis not indicated * DVT: Lovenox 40mg SC QD and SCDs * PT/OT * Heart healthy diet w/ 2g Na restrictio * Fall precautions * Bedside commode Disposition: Plans for discharge to [facility] by Wednesday or Wednesday; 12/19 or
[2017-12-19 08:34] VITALS: BP 119/71; PULSE 90; TEMP 97.5
[2017-12-19] MEDS: Enoxaparin 40 mg Syringe SC SCH ×2 (09:29→09:30)
--- NOTE | 2017-12-19 10:07 | CP.PCM.DIS ---
Provider - Provider Date of Admission: 12/16/17 10:48 Attending physician: Shayla Morrell DO Consults: Dr. Daley (neurology) Dr. Viramontes (ENT) Time Spent in preparation of Discharge (in minutes): 31 Diagnosis - Discharge Diagnosis (1) Impaired gait Status: Acute Comment: please refere discharge summary for further details of record (2) Alcohol use Status: Acute Comment: please refere discharge summary for further details of record (3) Tobacco use Status: Acute Comment: please refere discharge summary for further details of record (4) Lightheadedness Status: Acute Comment: please refere discharge summary for further details of record (5) Unsteady gait Status: Acute Priority: High Comment: please refere discharge summary for further details of record (6) Hyperlipidemia Status: Chronic Priority: Low (7) Hypertension Status: Chronic Priority: Low Hospital Course - Lab Results Lab Results: Most Recent Lab Values WBC 5.2 K/uL (4.8-10.8) 12/18/17 07:38 RBC 4.47 Mil/uL (4.40-5.90) 12/18/17 07:38 Hgb 15.4 g/dL (12.0-18.0) 12/18/17 07:38 Hct 43.9 % (35.0-51.0) 12/18/17 07:38 MCV 98.2 fL (80.0-94.0) H 12/18/17 07:38 MCH 34.5 pg (27.0-31.0) H 12/18/17 07:38 MCHC 35.1 g/dL (33.0-37.0) 12/18/17 07:38 RDW 12.7 % (11.5-14.5) 12/18/17 07:38 Plt Count 173 K/uL (130-400) 12/18/17 07:38 MPV 7.8 fL (7.2-11.7) 12/18/17 07:38 Neut % (Auto) 58.5 % (50.0-75.0) 12/18/17 07:38 Lymph % (Auto) 25.6 % (20.0-40.0) 12/18/17 07:38 [place] % (Auto) 12.1 % (0.0-10.0) H 12/18/17 07:38 Eos % (Auto) 3.0 % (0.0-4.0) 12/18/17 07:38 Baso % (Auto) 0.8 % (0.0-2.0) 12/18/17 07:38 Neut # (Auto) 3.1 K/uL (1.8-7.0) 12/18/17 07:38 Lymph # (Auto) 1.3 K/uL (1.0-4.3) 12/18/17 07:38 [place] # (Auto) 0.6 K/uL (0.0-0.8) 12/18/17 07:38 Eos # (Auto) 0.2 K/uL (0.0-0.7) 12/18/17 07:38 Baso # (Auto) 0.0 K/uL (0.0-0.2) 12/18/17 07:38 PT 10.7 SECONDS (9.7-12.2) 12/14/17 10:18 INR 1.0 12/14/17 10:18 APTT 25 SECONDS (21-34) 12/14/17 10:18 Sodium 141 mmol/L (132-148) 12/18/17 07:38 Potassium 4.1 mmol/L (3.6-5.2) 12/18/17 07:38 Chloride 103 mmol/L (98-107) 12/18/17 07:38 Carbon Dioxide 27 mmol/L (22-30) 12/18/17 07:38 Anion Gap 16 (10-20) 12/18/17 07:38 BUN 14 mg/dL (9-20) 12/18/17 07:38 Creatinine 1.2 mg/dL (0.8-1.5) 12/18/17 07:38 Est GFR ( Amer) > 60 12/18/17 07:38 Est GFR (Non-Af Amer) 60 12/18/17 07:38 POC Glucose (mg/dL) 171 mg/dL (65-110) H 12/14/17 09:50 Random Glucose 115 mg/dL (75-110) H 12/18/17 07:38 Calcium 10.0 mg/dl (8.6-10.4) 12/18/17 07:38 Phosphorus 3.7 mg/dL (2.5-4.5) 12/17/17 07:48 Magnesium 1.5 mg/dL (1.6-2.3) L 12/17/17 07:48 Total Bilirubin 1.2 mg/dL (0.2-1.3) 12/18/17 07:38 AST 54 U/L (17-59) 12/18/17 07:38 ALT 58 U/L (21-72) 12/18/17 07:38 Alkaline Phosphatase 52 U/L (38-126) 12/18/17 07:38 Total Creatine Kinase 145 U/L (55-170) 12/15/17 11:09 CK-MB (Mass) 0.89 ng/mL (0.0-3.38) 12/15/17 11:09 Troponin I < 0.0120 ng/mL (0.00-0.120) 12/15/17 11:09 NT-Pro-B Natriuret Pep 28.3 pg/mL (0-900) 12/14/17 10:18 Total Protein 8.1 g/dL (6.3-8.3) 12/18/17 07:38 Albumin 4.7 g/dL (3.5-5.0) 12/18/17 07:38 Globulin 3.4 gm/dL (2.2-3.9) 12/18/17 07:38 Albumin/Globulin Ratio 1.4 (1.0-2.1) 12/18/17 07:38 Triglycerides 160 mg/dL (0-149) H 12/15/17 06:13 Cholesterol 140 mg/dL (0-199) 12/15/17 06:13 LDL Cholesterol Direct 74 mg/dL (0-129) 12/15/17 06:13 HDL Cholesterol 39 mg/dL (30-70) 12/15/17 06:13 Vitamin B12 707 pg/mL (239-931) 12/16/17 07:19 Folate > 20.0 ng/mL 12/16/17 07:19 Free T4 1.17 ng/dL (0.78-2.19) 12/15/17 11:09 Thyroxine (T4) 9.05 ug/dL (5.5-11.0) 12/15/17 06:13 TSH 3rd Generation 7.86 mIU/L (0.46-4.68) H 12/15/17 06:13 - Hospital Course Hospital Course: As per H&P "Mr Caraballo is a 72 year old male with a PMHx of HTN, GERD, ED, HLD who presents to the ER complaining of unsteady gait. He states his unsteady gait is associated with lightheadedness. He also had nausea. He denies a sensation of room spinning. He woke up this morning at 6AM and felt as if he would fall over. He went back to sleep in hopes the sensation would go away however the symptoms persisted. He took a meclazine tablet without relief. He stated he had to hold on to something just to stand up. The symptoms persisted thus he came to the ER. Of note, he takes his BP medications at 8AM every morning and he stated 2 days ago he also took a cialis around noon. He felt fine in the interim and states the symptoms only began this morning. He had a similar episode 1 year ago which prompted him to come to the ED at that time as well. He denies chest pain, blurry vision, focal deficits, slurred speech, bleeding, fatigue, weight loss, abdominal pain, vomiting. 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 Neurology and ENT consults were called. Patient underwent imaging tests. Patient was seen by physical and occupational therapist. Patient is medically stable for subacute rehab. Patient will need to followup with Dr. sanchez (neurology) for EMG/VCN as outpatient. Patient was counselled again on discharge to space out his Cilasis from his anti -hypertensives to prevent syncopal type episodes. He is aware it will adverse affect his blood pressure. patient was counselled for alcohol and smoking cessation throughout hospitalization. Attached in my attestion is further details regarding hospitalization. Please provide information for Dr. Jorge Sanchez's office for outpatient EMG/NCS upon discharge. This is a summary of patient's hospitalization. Please refer to EMR for full body of record. - Date & Time of H&P Date of H&P: 12/14/17 Time of H&P: 15:11 Discharge Exam - Head Exam Head Exam: ATRAUMATIC, NORMAL INSPECTION - Eye Exam Eye Exam: EOMI Pupil Exam: NORMAL ACCOMODATION - ENT Exam ENT Exam: Mucous Membranes Dry - Respiratory Exam Respiratory Exam: Clear to PA & Lateral, NORMAL BREATHING PATTERN. absent: Rales, Wheezes, Stridor - Cardiovascular Exam Cardiovascular Exam: REGULAR RHYTHM, +S1, +S2 - GI/Abdominal Exam GI & Abdominal Exam: Normal Bowel Sounds, Soft. absent: Distended, Rebound, Rigid, Tenderness - Extremities Exam Extremities exam: normal capillary refill, pedal pulses present - Neurological Exam Neurological exam: Abnormal Gait, Alert, CN II-XII Intact, Oriented x3 - Psychiatric Exam Psychiatric exam: Normal Affect, Normal Mood - Skin Skin Exam: Dry, Intact, Normal Color, Warm Discharge Plan - Discharge Medications Prescriptions: diaZEpam [Valium] 2 mg PO Q12 PRN #10 tab PRN Reason: Dizziness Meclizine [Meclizine*] 25 mg PO BID #60 tab - Follow Up Plan Condition: STABLE Disposition: HOME/ ROUTINE Instructions: Smoking: Not Just Harmful to Your Lungs and Heart, Vertigo (a Type of Dizziness) (DC), Low Salt Diet, Quitting Smoking, High Cholesterol (DC) , Hypertension (GEN) Referrals: Ghanshyam Viramontes MD [Staff Provider] - Karolyn Daley MD [Staff Provider] - Flynn Sanchez MD [Staff Provider] - (for emg/vcn please) Attending/Attestation - Attestation I have personally seen and examined this patient.: Yes I have fully participated in the care of the patient.: Yes I have reviewed all pertinent clinical information, including history, physical exam and plan: Yes Notes (Text): Patient is medically stable for discharge. Patient will need information for Dr Jorge Sanchez's office for outpatient EMG/NCS. Discharge Diagnoses: (1) Severe Gait Impairment Lightheadedness BPPV Assessment & Plan: Consults: * ENT, Dr Viramontes--> help appreciated * As per patient, he was seen by ENT and was told examination was WNL * Neurology, Dr Daley---> Help appreciated * Management as per recommendation * EMG/ NCS as an outpatient with Dr. Sanchez. * Vestibular rehab Labs: * Troponin negative x3 * TSH: 7.86, Thyroxine: 9.06, f/u Free T4 * Lipid panel: TGL: 160, Chol: 140, LDL:74 and HDL: 39 Imaging: * CT head without contrast 12/14/17: * No definite acute intracranial findings by standard CT criteria. Mild age related neurodegenerative findings as discussed above, stable in the interval. * Carotid doppler: Duplex scan does not suggest hemodynamically significant stenosis bilateral * MRI brain w/o contrast: No mass-effect or cytotoxic edema throughout the brain. [id number] age-related neuro degenerative findings are appreciate throughout the cerebrum * Head MRA: Unremarkable * Neck MRA: Unremarkable * Medications: Meclizine 25mg PO BID, Valium 2mg PO Q12H PRN * PT/OT recommendation for subacute rehabilitation or visiting skilled PT upon discharge-->patient wants [facility] Status: Acute (2) Hypertension Assessment & Plan: * Controlled * Continue home med norvasc 5mg PO QD * Continue home med valsartan-hctz 160-12.5 -> switched to in house meds losartan-hctz 100-12.5mg PO QD Status: Chronic (3) Hyperlipidemia Assessment & Plan: * Lipid panel: TGL: 160, Chol: 140, LDL:74 and HDL: 39 Medication: * Crestor 10mg PO HS * ASA 81mg PO QD Status: Chronic (4) Prophylactic measure Assessment & Plan: * GI prophylaxis not indicated * DVT: Lovenox 40mg SC QD and SCDs * PT/OT * Heart healthy diet w/ 2g Na restriction * Fall precautions * Inpatient status changed during hospitalization due to severe impairment secondary to acute BPPV. Physical therapist: Pt exhibits severe, evolving impairment of all functional mobility and ambulation secondary to acute BPPV disorder. Pt had significant relief w/ BPPV PT tx w/ [facility] manuever. Pt has significant residual impairment of standing balance and ambulation being a candidate TCU/short-termSAR. Cont PT. Planning for discharge on Wednesday. 12/19/17
== END 2017-12-19 13:35 | DRG 149 ==
LOC: C.ER 09:38 → C.9E 15:07 → C.5S 17:08 → OBSVTOIN 12-16 10:48 → C.3T 12-17 13:18
PROVIDERS: ADMIT Hospitalist; ATTEND Hospitalist
DX: H81.10 Benign paroxysmal vertigo, unspecified ear (principal); I10 Essential (primary) hypertension; E78.00 Pure hypercholesterolemia, unspecified; F17.210 Nicotine dependence, cigarettes, uncomplicated; G47.00 Insomnia, unspecified; J34.2 Deviated nasal septum; K21.9 Gastro-esophageal reflux disease without esophagitis; Z79.82 Long term (current) use of aspirin; Z79.899 Other long term (current) drug therapy